=== PATIENT | male | born 1960 | race Hispanic/Latino ===

== ENCOUNTER 2025-04-22 15:46 | Emergency (ER) | payer SELFPAY ==
[~2025-04-22] VITALS: Ht 172.7 cm; Wt 77.1 kg
[2025-04-22 16:33] LABS: IMMATURE GRANULOCYTE ABSOLUTE 0.00 K/uL (0-1); NUCLEATED RED BLOOD CELLS 0.0 % (0.0-0.19); PLATELET COUNT (AUTO) 273 K/uL (130-400); RED BLOOD CELL COUNT(AUTO) 3.72 MIL/uL (4.50-6.20); RED CELL DISTRIBUTION WIDTH 14.6 % (11.0-15.5); WHITE BLOOD COUNT (AUTO) 7.1 K/uL (4.8-10.8)
[2025-04-22 16:41] LABS: CREATININE 1.7 mg/dL (0.5-1.3); GLOMERULAR FILTR. RATE CALC 44.0 mL/min (>90); GLUCOSE,RANDOM 162.0 mg/dL (70-105); SODIUM SERUM 139.0 mmol/L (136-145); UREA NITROGEN, BLOOD 28.0 mg/dL (7-18)
[2025-04-22 16:51] LABS: CREATINE KINASE, TOTAL 26.0 U/L (21-232)
[2025-04-22] MEDS: 0.9%NACL 1000ML 1,000 ML IV STA (17:04)
--- NOTE | 2025-04-22 17:28 | EKG ---
[facility] Test Date: 2025-04-22 Test Time: 17:24:07 Pat Name: SAUL SALAS Department: ED Room: Gender: M Senior Medical Director: [id number] : 1960 Requested By: MAC MCKEON Order Number: [id number] Reading MD: Hemant Negron Measurements Intervals [place] Rate: 67 P: 44 MO: 150 QRS: -10 QRSD: 94 T: 1 QT: 430 QTc: 454 Interpretive Statements Sinus rhythm No previous ECG available for comparison Electronically Signed On 04-22-2025 18:39:44 CDT by Hemant Negron Please click the below link to view image of tracing.
--- NOTE | 2025-04-22 17:45 | ERN ---
ED Note History of Present Illness Stated Complaint: EVALUATION OF SUGAR AND BP Chief Complaint: Multiple Complaints Time Seen by MD: 15:54 Time Seen by Midlevel: 15:58 Dictation: 65-year-old male with a history of hypertension diabetes coming in via EMS for evaluation of elevated blood sugar and blood pressure. Patient states he is not complaining with a home medications, it is homeless and has been outside for the last couple of days. Patient at this time has not no specific complaints other than generalized body weakness. Allergies: Coded Allergies: Penicillins (Unverified Allergy, Unknown, 04/22/25) Past Medical History Past Medical History: Diabetes-Type II, Hypertension, [place] Surgical History: Other Review of System Dictation Constitutional: Negative for fever,chills, and weight loss Eyes: Negative for injury, pain,redness, and discharge ENT: Negative for injury,pain or swelling Cardiovascular: Negative for chest pain, palpitations, and edema Respiratory: Negative for shortness of breath, cough, and wheezing, Abdomen/GI: Negative for abdominal pain, nausea, vomiting, diarrhea, and constipation Back: Negative for injury and pain : Negative for injury, bleeding and discharge MS/Extremity: Negative for injury and deformity Skin: Negative for rash, and discoloration Neuro: Negative for headache, weakness, numbness, tingling, and seizure Psych: Negative for suicide ideation, homicidal ideation, and hallucinations Review of Systems: was completed Initial Vital Sign VS Vital Signs Date Time Temp Pulse Resp B/P (MAP) Pulse Ox O2 Delivery O2 Flow Rate FiO2 04/22/25 15:50 98.8 82 20 151/83 97 04/22/25 17:25 Room Air* 0 21 Physical Exam Dictation General: awake, alert, NAD Head/Face: Normocephalic, atraumatic Eyes: PERRL, EOMI, vision at baseline ENT: oral cavity clear, TMs clear, no signs of infection Neck: Trachea midline, supple, no nuchal rigidity Cardiovascular: RRR, normal S1/S2, No MRGs, no JVD Respiratory: CTAB, no respiratory distress, No rales or wheezes Abdomen: Soft, non-tender, non-distended, normal bowel sounds, no guarding or rebound. Skin: Warm, dry, normal turgor, no rash MS/Extremity: Pulses equal, no cyanosis, neurovascular intact, FROM Neuro: COAx4, GCS 15, strength 5/5, CN 2-12 intact, normal cerebellar exam, normal gait, Psych: Normal behavior, mood, and affect normal Results (Laboratory/Radiology) Laboratory/Radiology Laboratory Tests Test 04/22/25 16:28 White Blood Count 7.1 K/uL (4.8-10.8) Red Blood Count 3.72 MIL/uL (4.50-6.20) L Hemoglobin 10.7 g/dL (14.0-18.0) L Hematocrit 31.5 % (42-54) L Mean Corpuscular Volume 84.7 fL (79-99) Mean Corpuscular Hemoglobin 28.8 pg (27.0-33.0) Mean Corpuscular Hemoglobin Concent 34.0 g/dL (32.0-36.0) Red Cell Distribution Width 14.6 % (11.0-15.5) Platelet Count 273 K/uL (130-400) Mean Platelet Volume 10.6 fL (7.5-10.5) H Immature Granulocyte % (Auto) 0.0 % (0-1) Neutrophils (%) (Auto) 69.1 % (40.0-77.0) Lymphocytes (%) (Auto) 20.3 % (21.0-51.0) L Monocytes (%) (Auto) 6.5 % (3.0-13.0) Eosinophils (%) (Auto) 3.5 % (0.0-8.0) Basophils (%) (Auto) 0.6 % (0.0-5.0) Neutrophils # (Auto) 4.9 K/uL (1.8-7.7) Lymphocytes # (Auto) 1.4 K/uL (1.0-4.8) Monocytes # (Auto) 0.5 K/uL (0.1-1.0) Eosinophils # (Auto) 0.25 K/uL (0.00-0.70) Basophils # (Auto) 0.04 K/uL (0.00-0.20) Absolute Immature Granulocyte (auto 0.00 K/uL (0-1) Nucleated Red Blood Cells 0.0 % (0.0-0.19) Sodium Level 139 mmol/L (136-145) Potassium Level 3.9 mmol/L (3.5-5.1) Chloride Level 105 mmol/L (101-111) Carbon Dioxide Level 25 mmol/L (21-32) Blood Urea Nitrogen 28 mg/dL (7-18) H Creatinine 1.7 mg/dL (0.5-1.3) H Glomerular Filtration Rate Calc 44 mL/min (>90) Random Glucose 162 mg/dL (70-105) H Total Calcium 8.3 mg/dL (8.5-10.1) L Total Creatine Kinase 26 U/L (21-232) Labs Reviewed?: Yes EKG Comment: EKGs done at 5:24 p.m.. Sinus rhythm at a rate of 67. No STEMI interpreted by ER MD ED Course ED Course Orders Procedure Category Date Status Time Cbc With Differential LAB 04/22/25 Complete 15:55 Basic Metabolic Panel LAB 04/22/25 Complete 15:55 Creatine Kinase, Total LAB 04/22/25 Complete 15:55 Urinalysis Profile LAB 04/22/25 Logged 15:55 12 Lead Ekg Tracing- EKG 04/22/25 Complete Technical 15:55 0.9%Nacl 1000ml (Ns PHA 04/22/25 Complete 1000ml) 15:55 Current Medications Medications (Trade) Dose Ordered Sig/Shay Route PRN Reason Start Time Stop Time Status Last Admin Dose Admin Sodium Chloride 1,000 ml @ 1,000 mls/hr Q1H STAT IV 04/22/25 15:55 04/22/25 16:54 DC 04/22/25 17:04 Vital Signs Date Time Temp Pulse Resp B/P (MAP) Pulse Ox O2 Delivery O2 Flow Rate FiO2 04/22/25 17:25 98.8 82 20 151/83 97 Room Air* 0 21 04/22/25 15:50 98.8 82 20 151/83 97 Medical Decision Making MDM MDM: 65-year-old male with a history of hypertension diabetes coming in via EMS for evaluation of elevated blood sugar and blood pressure. Patient states he is not complaining with a home medications, it is homeless and has been outside for the last couple of days. Patient at this time has not no specific complaints other than generalized body weakness. CBC Shows no leukocytosis, normocytic anemia hemoglobin of 10 and hematocrit 31. No thrombocytopenia. Chemistry shows no electrolyte abnormality. Elevated BUN creatinine creatinine is 1.7. This could be related to dehydration. 1 L initiated in the emergency room. Blood sugar 162. After 1 L of fluids patient states he feels much better and we will want to go home. Discussed with the patient the need to follow up with his PCP and take his home medication. Patient verbalized understanding, answered all questions. Differential diagnosis: Rhabdomyolysis, hyperglycemia, dehydration, electrolyte abnormality, RANDI Rationale: Tests considered and ordered secondary to shared decision making include: Previous outside records reviewed: Old ER visits. Risk of complication and/or morbidity or mortality of patient management: None Medications-Per medication reconciliation Need for hospitalization: Patient does not meet criteria for hospitalization. Need for emergency major/minor surgery: No There are no social concerns with this patient. Prescription drug management Prescriptions will include symptomatic care Patient's prior external medical records from other ER visits were reviewed by me as indicated. Prior testing and results from previous visits were reviewed. Prior tests were taken into account with medical decision making and resource utilization, independent historian/historians were used to obtain complete medical history. I independently interpreted the test that were performed, results were reviewed by me and considered findings on radiology if ordered. Medical management and examination interpretation discussions were had by me with other qualified healthcare professionals as indicated for the patient's care. DX & DISP Disposition: Discharge Departure Impression: Primary Impression: Dehydration Condition: Stable Additional Instructions: Instructions patient on red flag symptoms of return back to the emergency room. Educated patient to stay hydrated to avoid any kidney problems. Patient verbalized understanding, answered all questions. Referrals: SELF,REFERRAL (PCP) Time of Disposition: 18:12 I have reviewed the case, and I agree with, Diagnosis and Plan MAC MCKEON NP Apr 22, 2025 17:45
[2025-04-22 18:14] VITALS: BP 138/74; PULSE 77; RESP 20; TEMP 98.8; O2SAT 97
[2025-04-22 18:14] LABS: APPEARANCE,URINE CLEAR (CLEAR); GLUCOSE, URINE (UA) 70 mg/dL (NEGATIVE); LEUKOCYTE ESTERASE ,URINE NEGATIVE Leu/uL (NEGATIVE); NITRATE,URINE NEGATIVE (NEGATIVE); OCCULT BLOOD,URINE +- (TRACE) (NEGATIVE)
[2025-04-22 18:15] LABS: ADD UA MICROSCOPIC YES
[2025-04-22 18:41] LABS: OTHER CASTS, URINE 3 /LPF (None Seen); SQUAMOUS EPITHELIAL CELL,UR RARE /HPF (0-2)
== END 2025-04-22 18:15 | disposition home or self-care (01) ==
LOC: EDH 15:46
DX: E86.0 Dehydration (principal); E11.9 Type 2 diabetes mellitus without complications; I10 Essential (primary) hypertension; Z88.0 Allergy status to penicillin
CPT/HCPCS: 99284; 82550; 80048; 85025; 81001; 36415; 93005; J7030

== ENCOUNTER 2025-06-04 17:35 | Emergency (ER) | payer OTHER ==
[~2025-06-04] VITALS: Ht 172.7 cm; Wt 77.1 kg
[2025-06-04 17:49] VITALS: BP 120/76; PULSE 0; RESP 16; TEMP 98; O2SAT 98
--- NOTE | 2025-06-04 17:53 | ERN ---
General Chief Complaint: Headache Stated Complaint: HEADACHE Time Seen by MD: 17:50 History of Present Illness Initial Comments 65-year-old male brought in by EMS for hypertension. Patient is homeless. He was just discharged from [facility]. He states that he is hungry. He says that he is worried about his blood pressure. His blood pressure is 120/80. He has no other symptoms. Allergies: Coded Allergies: Penicillins (Unverified Allergy, Unknown, 04/22/25) Past Medical History Past Medical History: Diabetes-Type II, Hypertension, [place] Past Surgical History: Other ROS Dictation CONSTITUTIONAL: No chills, no fever, no weakness, no diaphoresis, no malaise. HEAD/FACE: No signs of trauma. EENT: No eye pain, no blurred vision, no tearing, no double vision, no ear pain, no ear discharge, no nose pain, no nasal congestion, no throat pain, no throat swelling, no mouth pain. RESPIRATORY: No cough, no orthopnea, no SOB, no stridor, no wheezing. CARDIOVASCULAR: No chest pain, no edema, no palpitations, no syncope. GASTROINTESTINAL/ABDOMINAL: No abdominal pain, no constipation, no diarrhea, no nausea, no vomiting. GENITOURINARY: No abnormal discharge, no dysuria, no frequent urination, no hematuria. No complaints of pain in the genitals. MUSCULOSKELETAL: No back pain, no gout, no joint pain, no joint swelling, no muscle pain, no muscle stiffness, no neck pain. INTEGUMENTARY: No change in color, no change in hair/nails, no dryness, no lesion, no lumps, no rash. NEUROLOGICAL/PSYCH: No anxiety, not depressed, no emotional problem, no head ache, no numbness, no pre-existing deficit, no history of seizures, no tremors, no weakness. HEMATOLOGIC/LYMPHATIC: Not anemic, no history of blood clots, no apparent bleeding, no bruising, glands not swollen. All Systems Negative, Except as Noted. Physical Exam Physical Exam Dictation VITAL SIGNS: Reviewed. GENERAL APPEARANCE: Alert, oriented x3, no acute distress. HEAD AND FACE: Non-traumatic. EYES: PERRL, pink conjunctivas, eyelid no trauma, anterior chamber clear. EARS: Pinnas intact and no signs of trauma or erythema. Ear canals clear and no discharge. TMs no erythema. NOSE: No discharge, no bleeding. OROPHARYNX: Mouth normal, teeth no caries, tongue pink. Pharynx clear, no erythema. Tonsils no exudates, no abscesses noted. Mucous membrane moist. NECK: Supple, non-tender, no thyromegaly, no masses, no JVD, no bruits. BREAST: Deferred. CHEST: No tenderness, no crepitus, no paradoxical movement, no retractions. LUNGS: Clear, well-ventilated, symmetric, no rales, no wheezing, no rhonchi, no stridor, good breath sounds bilaterally. HEART: Regular rate, regular rhythm, no murmur, no gallops. VASCULAR: No peripheral edema. ABDOMEN: Soft, positive bowel sounds, nondistended, no guarding, nontender, no r ebound, no masses no hepatomegaly, no splenomegaly, no Jalloh's sign, no hernias. RECTAL: Deferred. GENITAL: Deferred. NEUROLOGICAL: Normal speech, gross motor function intact, gross sensory function intact. MUSCULOSKELETAL: Neck nontender, full range of motion, back nontender, full range of motion. EXTREMITIES: Nontender, full range of motion. SKIN: Color pink, dry, no turgor, no rash, no lacerations, no abrasions, no contusions. LYMPHATICS: Deferred. MDM CC: Concern for hypertension, no complaints, hunger Limitations by social determinants of health: Homeless Differential diagnosis: Secondary gain, hypertension Vital signs are stable. Blood pressure 120/80. Heart rate stable. Clinically nontoxic. Ambulatory. GCS 15. Normal cranial nerves. I suspect the patient is here for secondary gain. He is mostly acting for food. Patient given a sandwich. We will DC. ED Course Vital Signs Date Time Temp Pulse Resp B/P (MAP) Pulse Ox O2 Delivery O2 Flow Rate FiO2 06/04/25 17:36 98.1 92 20 120/76 99 Room Air DX & DISP Disposition: Discharge Departure Impression: Primary Impression: Dehydration Additional Impression: Hunger Condition: Stable Referrals: SELF,REFERRAL (PCP) PERFECTO INGRAM DO Jun 04, 2025 17:52
--- NOTE | 2025-06-04 18:08 | NUR ---
PT LIVES ON THE STRE[address] PROVIDED INFORMATION ON LOCAL SHETERS AND HE ADVISED WILL MAKE CONTACT TAKEN TO LOBBY AFTER FED AND REYDRATED HE ADVISED WILL FINISH SANDWICH IN THE LOBBY AND MAKE HIS OWN WAY
== END 2025-06-04 18:10 | disposition home or self-care (01) ==
LOC: EDH 17:35
DX: E86.0 Dehydration (principal); T73.0XXA Starvation, initial encounter; E11.9 Type 2 diabetes mellitus without complications; I10 Essential (primary) hypertension; I25.2 Old myocardial infarction; Z88.0 Allergy status to penicillin; X58.XXXA Exposure to other specified factors, initial encounter
CPT/HCPCS: 99283

== ENCOUNTER 2025-06-06 09:32 | Emergency (ER) | payer OTHER ==
[~2025-06-06] VITALS: Ht 172.7 cm; Wt 77.1 kg
[2025-06-06] MEDS: 0.9% NACL 500ML IV.SOLN 500 ML IV ONE (10:07)
[2025-06-06 10:17] LABS: IMMATURE GRANULOCYTE ABSOLUTE 0.02 K/uL (0-1); NUCLEATED RED BLOOD CELLS 0.0 % (0.0-0.19); PLATELET COUNT (AUTO) 279 K/uL (130-400); RED BLOOD CELL COUNT(AUTO) 3.62 MIL/uL (4.50-6.20); RED CELL DISTRIBUTION WIDTH 13.4 % (11.0-15.5); WHITE BLOOD COUNT (AUTO) 7.1 K/uL (4.8-10.8)
[2025-06-06 10:29] LABS: ASPARTATE AMINOTRANSFERASE 11.0 U/L (10-37); CREATININE 2.5 mg/dL (0.5-1.3); GLOMERULAR FILTR. RATE CALC 28.0 mL/min (>90); GLUCOSE,RANDOM 210.0 mg/dL (70-105); SODIUM SERUM 136.0 mmol/L (136-145); TOTAL PROTEIN, SERUM 7.4 g/dL (6.0-8.3); UREA NITROGEN, BLOOD 47.0 mg/dL (7-18)
--- NOTE | 2025-06-06 10:35 | HMCIMG ---
EXAM: CR Chest, 1 View. CLINICAL HISTORY: Acute onset epigastric pain with chest pain COMPARISON: None provided. FINDINGS: LUNGS: There is no mass, infiltrate, or acute pulmonary abnormality. PLEURAL SPACES: No pleural effusion or pneumothorax. MEDIASTINUM: The cardiomediastinal silhouette is within normal limits. BONES: No acute osseous abnormality. IMPRESSION: No acute cardiopulmonary pathology is evident. /[place]
--- NOTE | 2025-06-06 10:42 | EKG ---
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
--- NOTE | 2025-06-06 10:48 | ERN ---
General Chief Complaint: Chest Pain Stated Complaint: CP Time Seen by MD: 09:35 Source: patient History of Present Illness Initial Comments This patient is a 65-year-old gentleman who was brought by EMS to the ED department with complaint of epigastric pain. Patient states that he also has mild chest pain. He had 1 episode of vomiting in the morning and he is continuously nauseous. No change in bowel habits reported. No shortness on breath on presentation. Timing/Duration: 24 hours Severity: moderate Associated Symptoms: nausea/vomiting Allergies: Coded Allergies: Penicillins (Unverified Allergy, Unknown, 04/22/25) Home Meds Active Scripts Simethicone (Simethicone) 125 Mg Capsule, 125 MG PO AD, #15 CAP Prov:DUGLAS RODRIGEZ MD 06/06/25 Famotidine (Famotidine) 10 Mg Tablet, 1 TAB PO DAILY for 30 Days, #30 TAB 0 Refills Prov:DUGLAS RODRIGEZ MD 06/06/25 Past Medical History Past Medical History: Diabetes-Type II, Diverticulitis, High Cholesterol, Hypertension Past Surgical History: Other Surgical History Other: TOE AMPUTATION Constitutional: (+) weakness Cardiovascular: (+) chest pain Gastrointestinal/Abdominal: (+) nausea, (+) vomiting, (+) abdominal pain, (+) abdominal distention Genitourinary: (-) penile discharge, (-) dysuria, (-) frequency, (-) hematuria, (-) pain, (-) other documentation Musculoskeletal: (-) Neck pain, (-) back pain, (-) Flank Pain, (-) joint pain, (-) joint swelling, (-) muscle pain, (-) muscle stiffness, (-) gout, (-) other documentation Skin: (-) laceration, (-) contusion, (-) abrasion, (-) abscess, (-) rash, (-) change in color, (-) change in hair, (-) change in nails, (-) diaphoresis, (-) dryness, (-) other documentation Neuro: (-) altered mental status, (-) headache, (-) syncope, (-) paralysis, (-) numbness, (-) seizure, (-) pre-existing deficit, (-) tremors, (-) weakness, (-) dizziness, (-) slurred speech, (-) vertigo, (-) other documentation Psych: (-) depression, (-) suicidal ideation, (-) anxiety, (-) emotional problems, (-) auditory hallucinations, (-) visual hallucinations Hematologic/Lymphatic: (-) anemia, (-) blood clots, (-) easy bleeding, (-) easy bruising, (-) swollen glands, (-) other documentation Immunological/Allergic: (-) food allergy, (-) grass allergy, (-) mold allergy, (-) pollen allergy, (-) HIV/AIDS, (-) transplant, (-) othe documentation Physical Exam General Appearance: (+) moderate distress Orientation: (+) alert, (+) oriented x 3 Ear, Nose, Throat: (+) hearing grossly normal, (+) normal ENT inspection, (+) moist mucous membraine Neck: (+) normal inspection, (+) supple, (+) full range of motion Respiratory: (+) chest non-tender, (+) lungs clear Heart: (+) regular Vascular: (+) no edema Gastrointestinal: (+) distended, (+) tender Extremities: (+) normal range of motion, (+) non-tender, (+) normal inspection Neurologic/Psychiatric: (+) normal speech, (+) no motor defecits, (+) no sensory deficits Skin: (+) normal color Results Laboratory and Microbiology Lab and Micro Result Laboratory Tests Test 06/06/25 10:00 06/06/25 10:44 06/06/25 11:54 White Blood Count 7.1 K/uL (4.8-10.8) Red Blood Count 3.62 MIL/uL (4.50-6.20) L Hemoglobin 10.4 g/dL (14.0-18.0) L Hematocrit 30.9 % (42-54) L Mean Corpuscular Volume 85.4 fL (79-99) Mean Corpuscular Hemoglobin 28.7 pg (27.0-33.0) Mean Corpuscular Hemoglobin Concent 33.7 g/dL (32.0-36.0) Red Cell Distribution Width 13.4 % (11.0-15.5) Platelet Count 279 K/uL (130-400) Mean Platelet Volume 11.0 fL (7.5-10.5) H Immature Granulocyte % (Auto) 0.3 % (0-1) Neutrophils (%) (Auto) 80.5 % (40.0-77.0) H Lymphocytes (%) (Auto) 13.1 % (21.0-51.0) L Monocytes (%) (Auto) 5.1 % (3.0-13.0) Eosinophils (%) (Auto) 0.6 % (0.0-8.0) Basophils (%) (Auto) 0.4 % (0.0-5.0) Neutrophils # (Auto) 5.7 K/uL (1.8-7.7) Lymphocytes # (Auto) 0.9 K/uL (1.0-4.8) L Monocytes # (Auto) 0.4 K/uL (0.1-1.0) Eosinophils # (Auto) 0.04 K/uL (0.00-0.70) Basophils # (Auto) 0.03 K/uL (0.00-0.20) Absolute Immature Granulocyte (auto 0.02 K/uL (0-1) Nucleated Red Blood Cells 0.0 % (0.0-0.19) Sodium Level 136 mmol/L (136-145) Potassium Level 4.0 mmol/L (3.5-5.1) Chloride Level 101 mmol/L (101-111) Carbon Dioxide Level 32 mmol/L (21-32) Blood Urea Nitrogen 47 mg/dL (7-18) H Creatinine 2.5 mg/dL (0.5-1.3) H Glomerular Filtration Rate Calc 28 mL/min (>90) Random Glucose 210 mg/dL (70-105) H Total Calcium 8.5 mg/dL (8.5-10.1) Total Bilirubin 0.4 mg/dL (0.2-1.0) Direct Bilirubin 0.1 mg/dL (0.0-0.3) Aspartate Amino Transf (AST/SGOT) 11 U/L (10-37) Alanine Aminotransferase (ALT/SGPT) 15 U/L (12-78) Alkaline Phosphatase 108 U/L (50-136) Troponin I High Sensitivity 7 ng/L (4-75) 8 ng/L (4-75) Total Protein 7.4 g/dL (6.0-8.3) Albumin 3.5 g/dL (3.5-5.0) Lipase 56 U/L (16-77) Procalcitonin < 0.05 ng/mL (0.05-0.5) L Lactic Acid Level 1.5 mmol/L (0.8-2.5) EKG/XRAY/US/CT/MRI X-RAY Comment PATIENT: SAUL SALAS MR#: [id number] : 1960 SEX: M AGE: 65 LOCATION: [facility] ORDER [id number] STATUS: REG ER [facility] REPORT#: [id number] SERVICE [id number] REASON: Acute onset epigastric pain with chest pain ORDERING PHYSICIAN: DGULAS RODRIGEZ MD PROCEDURE: CXR1VW - CHEST 1VW EXAM: CR Chest, 1 View. CLINICAL HISTORY: Acute onset epigastric pain with chest pain COMPARISON: None provided. FINDINGS: LUNGS: There is no mass, infiltrate, or acute pulmonary abnormality. PLEURAL SPACES: No pleural effusion or pneumothorax. MEDIASTINUM: The cardiomediastinal silhouette is within normal limits. BONES: No acute osseous abnormality. IMPRESSION: No acute cardiopulmonary pathology is evident. /[place] DICTATED BY: ERNESTINA THIBODEAUX Jr., MD DATE: 06/06/251133 ELECTRONICALLY SIGNED BY: ERNESTINA THIBODEAUX Jr., MD DATE: 06/06/[address] Scan Comment PATIENT: SAUL SALAS MR#: [id number] : 1960 SEX: M AGE: 65 LOCATION: [facility] ORDER [id number] STATUS: REG ER REPORT#: [id number] SERVICE 1111 REASON: Epigastric pain radiating to back ORDERING PHYSICIAN: DUGLAS RODRIGEZ MD PROCEDURE: ABD PEL WO - CT ABDOMEN/PELVIS W/O CONTRAST CT ABDOMEN/PELVIS W/O CONTRAST REASON: Epigastric pain radiating to back COMPARISON: None. FINDINGS: Lung bases are clear. The heart and pericardium appears to be normal. There is small to moderate hiatal hernia. There are no focal liver lesions. There are normal-appearing kidneys.. Spleen and pancreas appear unremarkable. The gallbladder appears normal as well. Bowel loops appear unremarkable. . The small and large bowels appears to be air-filled. This includes normal appearance of the appendix There is no evidence of free fluid or intraperitoneal air. There are no focal fluid collections. Aorta and iliac and femoral vessels demonstrate calcified plaque with no evidence of aneurysmal dilatation. The retroperitoneum appear normal as do pelvic soft tissue structures. The anterior abdominal wall is intact. Osseous structures demonstrate severe disease at L5-S1. There is ventral marginal spur at L4-L5 and lower thoracic spine. IMPRESSION: 1. No acute process seen in the CT of the abdomen and pelvis without intravenous contrast 2. Other findings as described above CT was performed with one or more following dose reduction techniques: automated exposure control, adjustment of the mA and kv according to patient's size, or use of a iterative reconstruction technique. DICTATED BY: PADDY DEXTER MD DATE: 06/06/25 1135 ELECTRONICALLY SIGNED BY: PADDY DEXTER MD DATE: 06/06/25 1140 [facility] Differential diagnosis: Acute pancreatitis, ACS, musculoskeletal pain, IBS This patient is a 65-year-old gentleman who was brought by EMS to the ED departm ent with complaint of epigastric pain. Patient states that he also has mild chest pain. He had 1 episode of vomiting in the morning and he is continuously nauseous. No change in bowel habits reported. No shortness on breath on presentation. On presentation, chest x-ray and CT abdomen pelvis without contrast were done which were unremarkable for any acute pathology. CBC showed mild anemia. CMP showed low GFR of 28. Lipase was unremarkable. Cardiac workup was negative with negative troponins and unremarkable EKG. Procalcitonin was within normal range. Patient was given ondansetron, Protonix, bolus of sodium chloride 500 mL and morphine. ED Course Orders Procedure Category Date Status Time 12 Lead Ekg Tracing- EKG 06/06/25 Complete Technical 09:42 Chest 1vw RAD 06/06/25 Resulted 09:45 Troponin I High LAB 06/06/25 Complete Sensitivity 09:45 Basic Metabolic Panel LAB 06/06/25 Complete 09:45 Hepatic Function Panel LAB 06/06/25 Complete 09:45 Lipase LAB 06/06/25 Complete 09:45 Ondansetron 4mg Inj PHA 06/06/25 Complete (Zofran 4mg Inj) 10:00 Morphine 2mg Syg PHA 06/06/25 In Process (Morphine 2mg Syg) 10:00 Cbc With Differential LAB 06/06/25 Complete 09:45 0.9% Nacl 500ml PHA 06/06/25 Complete Iv.Soln (Ns 500ml 10:00 Procalcitonin LAB 06/06/25 Complete 09:45 Pantoprazole 40mg Inj PHA 06/06/25 Complete (Protonix 40mg Inj 10:30 Troponin I High LAB 06/06/25 Complete Sensitivity 11:00 Ct Abdomen/Pelvis W/O CT 06/06/25 Resulted Contrast 11:11 Lactic Acid LAB 06/06/25 Complete 11:36 Current Medications Medications (Trade) Dose Ordered Sig/Shay Route PRN Reason Start Time Stop Time Status Last Admin Dose Admin Morphine Sulfate (morPHINE 2MG SYG) 2 mg Q4H PRN IVP SEVERE PAIN (7-10) 06/06/25 10:00 06/13/25 09:59 Ondansetron HCl (zoFRAN 4MG INJ) 4 mg ONCE ONCE IVP 06/06/25 10:00 06/06/25 10:01 DC 06/06/25 10:08 Pantoprazole Sodium (PROTonix 40MG INJ) 40 mg ONCE ONCE IVP 06/06/25 10:30 06/06/25 10:31 DC 06/06/25 10:28 Sodium Chloride 500 ml @ 0 mls/hr ONCE ONCE IV 06/06/25 10:00 06/06/25 10:01 DC 06/06/25 10:07 Vital Signs Date Time Temp Pulse Resp B/P (MAP) Pulse Ox O2 Delivery O2 Flow Rate FiO2 06/06/25 12:20 98.2 70 16 151/89 99 Room Air* 0 21 06/06/25 10:02 98.2 77 18 158/97 99 Room Air* 0 21 06/06/25 09:33 98.2 77 15 183/89 99 Room Air 0 DX & DISP Disposition: Discharge Departure Impression: Primary Impression: Irritable bowel syndrome Additional Impressions: CKD (chronic kidney disease), Dehydration Condition: Stable Scripts Simethicone (Simethicone) 125 Mg Capsule 125 MG PO AD, #15 CAP Prov: DUGLAS RODRIGEZ MD 06/06/25 Famotidine (Famotidine) 10 Mg Tablet 1 TAB PO DAILY for 30 Days, #30 TAB 0 Refills Prov: DUGLAS RODRIGEZ MD 06/06/25 Referrals: SELF,REFERRAL (PCP) ATTESTATION BY PHYSICIAN I have seen and examined the patient. I reviewed the documentation, medical decision making, and treatment plan as noted by the resident provider above. I agree with the findings and plan of care. PERFECTO INGRAM MUHAMMAD H MD Jun 06, 2025 10:48 PERFECTO INGRAM DO Jun 06, 2025 12:44
--- NOTE | 2025-06-06 11:20 | NUR ---
PT IS IN CT AT THIS TIME
--- NOTE | 2025-06-06 11:40 | HMCIMG ---
CT ABDOMEN/PELVIS W/O CONTRAST REASON: Epigastric pain radiating to back COMPARISON: None. FINDINGS: Lung bases are clear. The heart and pericardium appears to be normal. There is small to moderate hiatal hernia. There are no focal liver lesions. There are normal-appearing kidneys.. Spleen and pancreas appear unremarkable. The gallbladder appears normal as well. Bowel loops appear unremarkable. . The small and large bowels appears to be air-filled. This includes normal appearance of the appendix There is no evidence of free fluid or intraperitoneal air. There are no focal fluid collections. Aorta and iliac and femoral vessels demonstrate calcified plaque with no evidence of aneurysmal dilatation. The retroperitoneum appear normal as do pelvic soft tissue structures. The anterior abdominal wall is intact. Osseous structures demonstrate severe disease at L5-S1. There is ventral marginal spur at L4-L5 and lower thoracic spine. IMPRESSION: 1. No acute process seen in the CT of the abdomen and pelvis without intravenous contrast 2. Other findings as described above CT was performed with one or more following dose reduction techniques: automated exposure control, adjustment of the mA and kv according to patient's size, or use of a iterative reconstruction technique.
[2025-06-06] MEDS ORDERED: FAMO-290 PO (12:17)
[2025-06-06] MEDS ORDERED: SIME125C81 PO (12:17)
[2025-06-06 12:20] VITALS: BP 151/89; PULSE 70; RESP 16; TEMP 98.2; O2SAT 99
== END 2025-06-06 12:35 | disposition home or self-care (01) ==
LOC: EDH 09:32
DX: K58.9 Irritable bowel syndrome, unspecified (principal); I12.9 Hypertensive chronic kidney disease with stage 1 through stage 4 chronic kidney disease, or unspecified chronic kidney disease; E11.22 Type 2 diabetes mellitus with diabetic chronic kidney disease; N18.9 Chronic kidney disease, unspecified; E86.0 Dehydration; E78.00 Pure hypercholesterolemia, unspecified; Z79.899 Other long term (current) drug therapy; Z88.0 Allergy status to penicillin; Z98.890 Other specified postprocedural states
CPT/HCPCS: 99285; 74176; 96374; 71045; 96361; 96375; 80076; 84484 ×2; 80048; 83690; 85025; 83605; 36415; 93005; 84145; J7040; J2405; J2470

== ENCOUNTER 2025-06-08 01:23 | Observation (INO) | payer OTHER ==
[2025-06-08] VITALS (8 sets, daily range): BP systolic 119–161; BP diastolic 68–78; PULSE 61–78; RESP 18–20; TEMP 97.5–98; O2SAT 95–99
[~2025-06-08] VITALS: Ht 172.7 cm; Wt 72.6 kg
[~2025-06-08 01:23] MED LIST: FAMO-290 PO; SIME125C81 PO
--- NOTE | 2025-06-08 01:34 | ERN ---
ED Note History of Present Illness Stated Complaint: Patient states he has some generalized body weakness. But no falls trips traumas no no cough congestion runny nose Chief Complaint: Weakness Time Seen by MD: 01:31 Allergies: Coded Allergies: Penicillins (Unverified Allergy, Unknown, 04/22/25) Home Meds Active Scripts Simethicone (Simethicone) 125 Mg Capsule, 125 MG PO AD, #15 CAP Prov:DUGLAS RODRIGEZ MD 06/06/25 Famotidine (Famotidine) 10 Mg Tablet, 1 TAB PO DAILY for 30 Days, #30 TAB 0 Refills Prov:DUGLAS RODRIGEZ MD 06/06/25 Past Medical History Past Medical History: Diabetes-Type II, Diverticulitis, High Cholesterol, Hypertension, MD Surgical History: Other Surgical History Other: TOE AMPUTATION Review of System Dictation Constitutional: Negative for fever,chills, and weight loss Eyes: Negative for injury, pain,redness, and discharge ENT: Negative for injury,pain or swelling Cardiovascular: Negative for chest pain, palpitations, and edema Respiratory: Negative for shortness of breath, cough, and wheezing, Abdomen/GI: Negative for abdominal pain, nausea, vomiting, diarrhea, and constipation Back: Negative for injury and pain : Negative for injury, bleeding and discharge MS/Extremity: Negative for injury and deformity Skin: Negative for rash, and discoloration Neuro: Negative for headache, weakness, numbness, tingling, and seizure Psych: Negative for suicide ideation, homicidal ideation, and hallucinations Initial Vital Sign VS Vital Signs Date Time Temp Pulse Resp B/P (MAP) Pulse Ox O2 Delivery O2 Flow Rate FiO2 06/08/25 01:26 97.5 74 16 152/75 Room Air 0 Physical Exam Dictation General: awake, alert, NAD Head/Face: Normocephalic, atraumatic Eyes: PERRL, EOMI, vision at baseline ENT: oral cavity clear, TMs clear, no signs of infection Neck: Trachea midline, supple, no nuchal rigidity Cardiovascular: RRR, normal S1/S2, No MRGs, no JVD Respiratory: CTAB, no respiratory distress, No rales or wheezes Abdomen: Soft, non-tender, non-distended, normal bowel sounds, no guarding or rebound. Skin: Warm, dry, normal turgor, no rash MS/Extremity: Pulses equal, no cyanosis, neurovascular intact, FROM Neuro: COAx4, GCS 15, strength 5/5, CN 2-12 intact, normal cerebellar exam, normal gait, Psych: Normal behavior, mood, and affect normal No focal deficits. NIH of 0 that has able to ambulate. Results (Laboratory/Radiology) Laboratory/Radiology Laboratory Tests Test 06/08/25 01:34 White Blood Count 6.8 K/uL (4.8-10.8) Red Blood Count 3.30 MIL/uL (4.50-6.20) L Hemoglobin 9.8 g/dL (14.0-18.0) L Hematocrit 27.8 % (42-54) L Mean Corpuscular Volume 84.2 fL (79-99) Mean Corpuscular Hemoglobin 29.7 pg (27.0-33.0) Mean Corpuscular Hemoglobin Concent 35.3 g/dL (32.0-36.0) Red Cell Distribution Width 13.3 % (11.0-15.5) Platelet Count 271 K/uL (130-400) Mean Platelet Volume 10.7 fL (7.5-10.5) H Immature Granulocyte % (Auto) 0.1 % (0-1) Neutrophils (%) (Auto) 54.4 % (40.0-77.0) Lymphocytes (%) (Auto) 35.0 % (21.0-51.0) Monocytes (%) (Auto) 5.8 % (3.0-13.0) Eosinophils (%) (Auto) 4.1 % (0.0-8.0) Basophils (%) (Auto) 0.6 % (0.0-5.0) Neutrophils # (Auto) 3.7 K/uL (1.8-7.7) Lymphocytes # (Auto) 2.4 K/uL (1.0-4.8) Monocytes # (Auto) 0.4 K/uL (0.1-1.0) Eosinophils # (Auto) 0.28 K/uL (0.00-0.70) Basophils # (Auto) 0.04 K/uL (0.00-0.20) Absolute Immature Granulocyte (auto 0.01 K/uL (0-1) Nucleated Red Blood Cells 0.0 % (0.0-0.19) Sodium Level 137 mmol/L (136-145) Potassium Level 3.3 mmol/L (3.5-5.1) L Chloride Level 102 mmol/L (101-111) Carbon Dioxide Level 26 mmol/L (21-32) Blood Urea Nitrogen 30 mg/dL (7-18) H Creatinine 2.0 mg/dL (0.5-1.3) H Glomerular Filtration Rate Calc 37 mL/min (>90) Random Glucose 173 mg/dL (70-105) H Total Calcium 8.3 mg/dL (8.5-10.1) L Troponin I High Sensitivity 8 ng/L (4-75) ED Course ED Course Orders Procedure Category Date Status Time Cbc With Differential LAB 06/08/25 Complete 01:32 Chest 1vw RAD 06/08/25 Logged 01:32 12 Lead Ekg Tracing- EKG 06/08/25 Complete Technical 01:32 Lactated Ringers PHA 06/08/25 Complete 1000ml (Lactated 02:00 Troponin I High LAB 06/08/25 Complete Sensitivity 01:32 Basic Metabolic Panel LAB 06/08/25 Complete 01:32 Current Medications Medications (Trade) Dose Ordered Sig/Shay Route PRN Reason Start Time Stop Time Status Last Admin Dose Admin Lactated Ringer's 1,000 ml @ 0 mls/hr ONCE ONCE IV 06/08/25 02:00 06/08/25 02:01 DC 06/08/25 01:56 Vital Signs Date Time Temp Pulse Resp B/P (MAP) Pulse Ox O2 Delivery O2 Flow Rate FiO2 06/08/25 01:26 97.5 74 16 152/75 Room Air 0 Medical Decision Making MDM MDM: Differential diagnosis: Rationale: Tests considered and ordered secondary to shared decision making include: labs, ECG and radiology Previous outside records reviewed: Old ER visits. Risk of complication and/or morbidity or mortality of patient management: None Medications-Per medication reconciliation Need for hospitalization: Patient does meet criteria for hospitalization. Need for emergency major/minor surgery: No There are no social concerns with this patient. Prescription drug management Prescriptions will include symptomatic care Patient's prior external medical records from other ER visits were reviewed by me as indicated. Prior testing and results from previous visits were reviewed. Prior tests were taken into account with medical decision making and resource utilization, independent historian/historians were used to obtain complete medical history. I independently interpreted the test that were performed, results were reviewed by me and considered findings on radiology if ordered. Medical management and examination interpretation discussions were had by me with other qualified healthcare professionals as indicated for the patient's care. DX & DISP Disposition: Inpatient Departure Impression: Primary Impression: Dehydration Condition: Stable Referrals: SELF,REFERRAL (PCP) RAYA OMALLEY MD Jun 08, 2025 01:34
--- NOTE | 2025-06-08 01:38 | EKG ---
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
[2025-06-08 01:43] LABS: IMMATURE GRANULOCYTE ABSOLUTE 0.01 K/uL (0-1); NUCLEATED RED BLOOD CELLS 0.0 % (0.0-0.19); PLATELET COUNT (AUTO) 271 K/uL (130-400); RED BLOOD CELL COUNT(AUTO) 3.30 MIL/uL (4.50-6.20); RED CELL DISTRIBUTION WIDTH 13.3 % (11.0-15.5); WHITE BLOOD COUNT (AUTO) 6.8 K/uL (4.8-10.8)
[2025-06-08 01:55] LABS: CREATININE 2.0 mg/dL (0.5-1.3); GLOMERULAR FILTR. RATE CALC 37.0 mL/min (>90); GLUCOSE,RANDOM 173.0 mg/dL (70-105); SODIUM SERUM 137.0 mmol/L (136-145); UREA NITROGEN, BLOOD 30.0 mg/dL (7-18)
[2025-06-08] MEDS: LACTATED RINGERS 1000ML 1,000 ML IV ONE (01:56)
--- NOTE | 2025-06-08 02:21 | HP ---
[facility]ORY [facility] PHYSICAL Date of Service: Jun 08, 2025 Time of Service: 02:21 PCP: Self Referral HISTORY OF PRESENT ILLNESS: This is a 65 year old male who is a homeless with past medical history of hypertension,hyperlipidemia,diabetes and coronary artery disease /GA with cardiac stent who was brought by EMS tot he Ed for complaints of bilateral lower extremity weakness which started today.Patient reports he has not drink water much because he is homeless and today he has difficulty walking and he feels weak.Patient also states he is not taking any meds because he is not able to afford it.Patient reports he recently had a heart attack and had a cardiac stent x 1 he said.Patient denies fall injury,loss of consciousness,nausea,vomiting,chest pain,palpitation and shortness of breath.Patient is able to move all extremities and follow commands. Latest vital signs temperature 97.5, heart rate 74, blood pressure 152/75. Labs: WBC 6, neutrophils 54 hemoglobin 9, hematocrit 27, platelet count 271. Potassium 3.3, BUN 30, creatinine 2, GFR 37, glucose 173 total calcium 8.3 troponin eight. Chest x-ray result is still pending at this time.Sinus rhythm HR70.While in the ER patient received 1 L LR bolus.Will admit patient for further medical management. REVIEW OF SYSTEMS CONSTITUTIONAL: Denies fevers, chills, or night sweats. No unintentional weight loss reported. NEUROLOGICAL: complained of bilateral lower extremity weakness Denies headache, amaurosis fugax, sensory deficit, vertigo/spinning sensation, gait abnormalities, or tremors. ENT: No hearing loss, otalgia, otorrhea, rhinitis, rhinorrhea, hoarseness, or sore throat. CARDIOVASCULAR: Denies any exertional angina, dyspnea on exertion, orthopnea, paroxysmal nocturnal dyspnea, palpitations, life-threatening arrhythmias, ciaran dication. PULMONARY: Denies any shortness of breath, cough, phlegm/sputum, hemoptysis, pleuritic chest pain. SLEEP: Denies morning headaches, daytime somnolence or napping. Denies difficulty falling asleep, staying asleep, waking from sleep. Denies knowledge of snoring. GASTROINTESTINAL: Denies any type of dysphagia to either liquids or solids. Denies nausea, vomiting, pyrosis, early satiety, abdominal pain, diarrhea, constipation, or changes in stool consistency or caliber. Denies coffee-ground emesis, hematemesis, hematochezia, or melanotic stools. GENITOURINARY: Denies frequency, urgency, nocturia, hematuria or incontinence (Storage/Irritative symptoms.) Low urinary stream, straining to void, urinary intermittency or hesitancy, splitting of the voiding stream, terminal dribbling. ENDOCRINOLOGIC: Denies polyuria, polydipsia, polyphagia or heat/cold intolerances. HEMATOLOGIC: Denies thrombophilia/previous clots, or coagulopathy/bleeding disorders. ONCOLOGIC: Denies personal history of malignancy. DERMATOLOGIC: Denies rashes or pruritus. PSYCHIATRIC: Denies any suicidal or homicidal ideation. Denies hallucinations. PAST MEDICAL HISTORY: [ Diabetes,hypertension,hyperlipidemia,GA and Diverticulitis ] PAST SURGICAL HISTORY: [ Toe amputation ,cardiac cath stent x1 ] PAST SOCIAL HISTORY: [ Patient is a homeless and states he smokes 10 cigarette/day and denies alcohol and recreational drug use.] FAMILY HISTORY: [ Noncontributory ] Coded Allergies: Penicillins (Unverified Allergy, Unknown, 04/22/25) PHYSICAL EXAM GENERAL APPEARANCE: The patient is awake, alert, and oriented, in no acute cardiopulmonary distress. NEUROLOGICAL: Cranial nerves II-XII grossly intact. Motor is 5/5 in bilateral upper and lower extremities proximal to distal. No sensory deficits. HEENT: Face is symmetric. Pupils are equal and reactive. Extraocular movements are intact. NECK: Supple. No JVD. No thyromegaly. No submental, submandibular, pre- /postauricular, occipital or supraclavicular lymphadenopathy. CHEST: Normal chest expansion. No Telemetry. LUNGS: Absence of any rales, rhonchi or any wheezing. CARDIOVASCULAR: Regular. S1 and S2 normal. No appreciable rubs, murmurs or gallops. ABDOMEN: Soft, nontender, and nondistended. There is no rebound, voluntary guarding, or rigidity. : Deferred. No Morgan. EXTREMITIES: Non-edematous and not cyanotic. No clubbing. Good capillary refill. SKIN: No skin breakdown. Vital Sign (Last 24 Hours) 06/08/25 01:26 Temp 97.5 Pulse 74 Resp 16 B/P (MAP) 152/75 O2 Delivery Room Air O2 Flow Rate 0 LABS: Laboratory: Test 06/08/25 01:34 Range/Units White Blood Count 6.8 4.8-10.8 K/uL Red Blood Count 3.30 L 4.50-6.20 MIL/uL Hemoglobin 9.8 L 14.0-18.0 g/dL Hematocrit 27.8 L 42-54 % Mean Corpuscular Volume 84.2 79-99 fL Mean Corpuscular Hemoglobin 29.7 27.0-33.0 pg Mean Corpuscular Hemoglobin Concent 35.3 32.0-36.0 g/dL Red Cell Distribution Width 13.3 11.0-15.5 % Platelet Count 271 130-400 K/uL Mean Platelet Volume 10.7 H 7.5-10.5 fL Immature Granulocyte % (Auto) 0.1 0-1 % Neutrophils (%) (Auto) 54.4 40.0-77.0 % Lymphocytes (%) (Auto) 35.0 21.0-51.0 % Monocytes (%) (Auto) 5.8 3.0-13.0 % Eosinophils (%) (Auto) 4.1 0.0-8.0 % Basophils (%) (Auto) 0.6 0.0-5.0 % Neutrophils # (Auto) 3.7 1.8-7.7 K/uL Lymphocytes # (Auto) 2.4 1.0-4.8 K/uL Monocytes # (Auto) 0.4 0.1-1.0 K/uL Eosinophils # (Auto) 0.28 0.00-0.70 K/uL Basophils # (Auto) 0.04 0.00-0.20 K/uL Absolute Immature Granulocyte (auto 0.01 0-1 K/uL Nucleated Red Blood Cells 0.0 0.0-0.19 % Sodium Level 137 136-145 mmol/L Potassium Level 3.3 L 3.5-5.1 mmol/L Chloride Level 102 101-111 mmol/L Carbon Dioxide Level 26 21-32 mmol/L Blood Urea Nitrogen 30 H 7-18 mg/dL Creatinine 2.0 H 0.5-1.3 mg/dL Glomerular Filtration Rate Calc 37 >90 mL/min Random Glucose 173 H 70-105 mg/dL Total Calcium 8.3 L 8.5-10.1 mg/dL Troponin I High Sensitivity 8 4-75 ng/L DIAGNOSTICS / RADIOLOGY: [ ] ASSESSMENT: Possible dehydration POA Acute normocytic normochromic anemia POA Debility POA Hypokalemia POA Acute kidney injury POA Uncontrolled diabetes POA Hypertension POA Hyperlipidemia POA Nicotine Dependence POA Homelessness POA PLAN: We will admit patient in medical surgical We will start on heart healthy diet We will start LR @ 100 ml / hr x2 bags and re evaluate We will start on Protonix 40 mg po daily for GI prophylaxis We will replace electrolytes as needed per protocol We will start on insulin sliding scale AC & HS with hypoglycemia protocol We will add prn medication for fever,pain,cough , nausea and vomiting We will reconcile home meds once medlist available We will request case management service We will request PT to eval and treat Counseled on cigarette smoking cessation We will request labs in am Further orders to follow depending on above results Case discussed with attending physician and came up with above treatment and plan of care. ADVANCED CARE PLANNING 1. Which of the following were discussed? Hospice Care - No Therapeutic options - Yes Advance Directives - No Other discussions - 2. Discussed with who? Patient 3. Voluntary nature of this service was explained to the patient? Yes 4. Amount of time spent - ___23 min____ 5. Reviewed by Physician? (if this service was performed by NPP) Yes Patient seen and examined by me. Agree with note by [employer] SEE ADDITIONAL ORDERS PER CHART DISCUSSED WITH NURSING STAFF KAREN MCCLOUD Jun 08, 2025 02:21
[2025-06-08] MEDS: LACTATED RINGERS 1000ML 1,000 ML IV SCH (03:23)
[2025-06-08] MEDS ORDERED: DEXTROSE 50%-WATER 50 ML DISP.SYRIN IV PRN (03:30)
[2025-06-08] MEDS ORDERED: GLUCAGON 1MG KIT 1 MG ML IM PRN (03:30)
[2025-06-08] MEDS ORDERED: PoTASSium chl 10% ELIXIR 20MEQ 20 MEQ/15 ML UDCUP PO PRN (03:30)
--- NOTE | 2025-06-08 03:37 | HMCIMG ---
EXAM: CR Chest, 1 view CLINICAL HISTORY: Evaluate the chest. COMPARISON: Chest radiograph dated 06/06/2025. FINDINGS: The lungs show no infiltrates or other acute findings. No pleural effusion or pneumothorax. The cardiomediastinal silhouette is within normal limits. Mild atherosclerotic aorta. No acute osseous abnormality. IMPRESSION: No acute cardiopulmonary process is evident. Compared to the prior study, there is no significant interval change. /[place]
[2025-06-08 03:40] LABS: ADD UA MICROSCOPIC YES; APPEARANCE,URINE CLEAR (CLEAR); GLUCOSE, URINE (UA) 70 mg/dL (NEGATIVE); LEUKOCYTE ESTERASE ,URINE NEGATIVE Leu/uL (NEGATIVE); NITRATE,URINE NEGATIVE (NEGATIVE); OCCULT BLOOD,URINE NEGATIVE (NEGATIVE)
--- NOTE | 2025-06-08 03:40 | NUR ---
ADMIT PT ADMITTED TO ROOM 321, AAOX3. NO DISTRESS NOTED. NO COMPLAINTS VERBALIZED. ADMISSION CARE DONE. ADMISSION V/S MONITORED, STABLE. ADMISSION ASSESSMENT DONE, PLEASE REFER TO CHART. CONTINUED IVF FROM ER OF LR REGULATED AT 100CC/HR. STARTED ON PO POTASSIUM PER PROTOCOL, TOLERATED WELL. ORIENTED TO ROOM AND UNIT. IN FOR MORE CARE AND MANAGEMENT. Addendum: 06/08/25 at 9005 by JAMES PADILLA RN RN Amended: Links added.
[2025-06-08 03:41] LABS: SQUAMOUS EPITHELIAL CELL,UR RARE /HPF (0-2)
[2025-06-08] MEDS: PoTASSium chloRIDE 20MEQ ER 20 MEQ ERTAB PO PRN (03:54)
[2025-06-08 05:58] LABS: IMMATURE GRANULOCYTE ABSOLUTE 0.01 K/uL (0-1); NUCLEATED RED BLOOD CELLS 0.0 % (0.0-0.19); PLATELET COUNT (AUTO) 236 K/uL (130-400); RED BLOOD CELL COUNT(AUTO) 3.07 MIL/uL (4.50-6.20); RED CELL DISTRIBUTION WIDTH 13.6 % (11.0-15.5); WHITE BLOOD COUNT (AUTO) 5.2 K/uL (4.8-10.8)
[2025-06-08 06:25] LABS: ASPARTATE AMINOTRANSFERASE 9.0 U/L (10-37); CREATINE KINASE, TOTAL 39.0 U/L (21-232); CREATININE 1.9 mg/dL (0.5-1.3); GLOMERULAR FILTR. RATE CALC 39.0 mL/min (>90); GLUCOSE,RANDOM 203.0 mg/dL (70-105); SODIUM SERUM 143.0 mmol/L (136-145); TOTAL PROTEIN, SERUM 6.1 g/dL (6.0-8.3); UREA NITROGEN, BLOOD 27.0 mg/dL (7-18)
[2025-06-08] MEDS: MAGNESIUM 2GM PREMIX 50ML 50 ML IV PRN (06:39)
[2025-06-08 09:17] LABS: % IRON SATURATION 19.5 % (30-44); IRON, SERUM 45.0 mcg/dL (65-175)
[2025-06-08 09:19] LABS: CREATINE KINASE, TOTAL 39.0 U/L (21-232)
--- NOTE | 2025-06-08 12:04 | NUR ---
DCP: INITIAL ASSESSMENT Patient states he is homeless X 1 month. He states he stays with friends or wherever he can day by day. Patient would not elaborate on where or with whom he was living. He states he has a brother but is not in communication with him. Patient agreeable to go to local homeless custodial but will need transportation to get there. MARA spoke with patient regarding applying for SSA benefits. He stated that he had thought about it but has not actually looked into doing so. SW informed patient that people at the homeless custodial may be able to assist him with applying for benefits. He stated that he would look into it once he was present at the homeless custodial. DCP accepting [facility] custodial. Addendum: 06/08/25 at 1209 by KHALIF RAMOS SS Amended: Links added.
[2025-06-08] MEDS: THIAMINE HCL 100 MG/ML 2ML VIAL IVP SCH (14:11)
[2025-06-08] MEDS: CYANOCOBALAMIN (VITAMIN B-12) 1,000 MCG TABLET PO SCH (15:49)
--- NOTE | 2025-06-08 18:41 | PN ---
[facility] PROGRESS NOTE Date of Service: Jun 08, 2025 Time of Service: 18:38 SUBJECTIVE: This is a 65 year old male who is a homeless with past medical history of hypertension,hyperlipidemia,diabetes and coronary artery disease /[place] with cardiac stent who was brought by EMS tot he Ed for complaints of bilateral lower extremity weakness which started yesterday.Apparently , he had came to ER 2 times this week due to chest pain and vomiting. CT abdomen was negative and he was discharged from ER.Patient reports he has not been drinking water much because he is homeless and today he has difficulty walking and he feels weak.Patient also states he is not taking any meds because he is not able to afford it.Patient reports he recently had a heart attack and had a cardiac stent x 1 he said.Patient denies fall injury,loss of consciousness,nausea,vomiting,chest pain,palpitation and shortness of breat h.Patient is able to move all extremities and follow commands. He has a surgical history of Toe amputation (right tma) ,cardiac cath stent x1. Patient is a homeless and states he smokes 10 cigarette/day and denies alcohol and recreational drug use. Latest vital signs temperature 97.5, heart rate 74, blood pressure 152/75. Labs: WBC 6, neutrophils 54 hemoglobin 9, hematocrit 27, platelet count 271. Potassium 3.3, BUN 30, creatinine 2, GFR 37, glucose 173 total calcium 8.3 troponin eight. Chest x-ray result is still pending at this time.Sinus rhythm HR70.While in the ER patient received 1 L LR bolus. He is admitted for further evaluation of his weakness. 06.08.25: Patient is seen and evaluated at the bedside . His vitals are stable and Labs are remarkable for RANDI on CKD(creatinine 2--->1.9: baseline 1.7), iron deficiency anemia .He complaints of sudden onset right lower extremity weakness yesterday .We will request CT head and spine, urine tox screen.He is being treated with multivitamins and iron . REVIEW OF SYSTEMS CONSTITUTIONAL: Denies fevers, chills, or night sweats. No unintentional weight loss reported. NEUROLOGICAL: complained of bilateral lower extremity weakness Denies headache, amaurosis fugax, sensory deficit, vertigo/spinning sensation, gait abnormalities, or tremors. ENT: No hearing loss, otalgia, otorrhea, rhinitis, rhinorrhea, hoarseness, or sore throat. CARDIOVASCULAR: Denies any exertional angina, dyspnea on exertion, orthopnea, paroxysmal nocturnal dyspnea, palpitations, life-threatening arrhythmias, claudication. PULMONARY: Denies any shortness of breath, cough, phlegm/sputum, hemoptysis, pleuritic chest pain. SLEEP: Denies morning headaches, daytime somnolence or napping. Denies difficulty falling asleep, staying asleep, waking from sleep. Denies knowledge of snoring. GASTROINTESTINAL: Denies any type of dysphagia to either liquids or solids. Denies nausea, vomiting, pyrosis, early satiety, abdominal pain, diarrhea, constipation, or changes in stool consistency or caliber. Denies coffee-ground emesis, hematemesis, hematochezia, or melanotic stools. GENITOURINARY: Denies frequency, urgency, nocturia, hematuria or incontinence (Storage/Irritative symptoms.) Low urinary stream, straining to void, urinary intermittency or hesitancy, splitting of the voiding stream, terminal dribbling. ENDOCRINOLOGIC: Denies polyuria, polydipsia, polyphagia or heat/cold intoleran aylin. HEMATOLOGIC: Denies thrombophilia/previous clots, or coagulopathy/bleeding disorders. ONCOLOGIC: Denies personal history of malignancy. DERMATOLOGIC: Denies rashes or pruritus. PSYCHIATRIC: Denies any suicidal or homicidal ideation. Denies hallucinations. PHYSICAL EXAM GENERAL APPEARANCE: The patient is awake, alert, and oriented, in no acute cardiopulmonary distress. NEUROLOGICAL: Cranial nerves II-XII grossly intact. Motor is 5/5 in bilateral upper and lower extremities proximal to distal. No sensory deficits. HEENT: Face is symmetric. Pupils are equal and reactive. Extraocular movements are intact. NECK: Supple. No JVD. No thyromegaly. No submental, submandibular, pre- /postauricular, occipital or supraclavicular lymphadenopathy. CHEST: Normal chest expansion. No Telemetry. LUNGS: Absence of any rales, rhonchi or any wheezing. CARDIOVASCULAR: Regular. S1 and S2 normal. No appreciable rubs, murmurs or gallops. ABDOMEN: Soft, nontender, and nondistended. There is no rebound, voluntary guarding, or rigidity. : Deferred. No Morgan. EXTREMITIES: Non-edematous and not cyanotic. No clubbing. Good capillary refill. SKIN: No skin breakdown. Vital Signs (last 8hr) Date Time Temp Pulse Resp B/P (MAP) Pulse Ox O2 Delivery O2 Flow Rate FiO2 06/08/25 16:00 97.5 64 18 119/68 98 Room Air 06/08/25 12:00 97.9 63 18 145/77 97 Room Air LABS: Laboratory: Test 06/08/25 16:03 06/08/25 08:34 06/08/25 05:40 06/08/25 03:27 Range/Units Whole Blood Glucose 151 H 70-110 MG/DL Reticulocyte Count (auto) 1.88488 0.42-2.23 % Immature Reticulocyte Fraction 7.00 H 0.18-0.48 % Lactic Acid Level 1.5 0.8-2.5 mmol/L Iron Level 45 L 65-175 mcg/dL Total Iron Binding Capacity 230 L 250-450 mcg/dL Percent Iron Saturation 19.5 L 30-44 % Ferritin 144 30-400 ng/mL Total Creatine Kinase 39 21-232 U/L Vitamin B12 Level 280 193-986 pg/mL Procalcitonin < 0.05 L 0.05-0.5 ng/mL Free Thyroxine (T4) Direct 1.15 0.76-1.46 ng/dL Free Triiodothyronine (T3) pg/mL 2.32 2.18-3.98 pg/mL White Blood Count 5.2 4.8-10.8 K/uL Red Blood Count 3.07 L 4.50-6.20 MIL/uL Hemoglobin 8.9 L 14.0-18.0 g/dL Hematocrit 25.7 L 42-54 % Mean Corpuscular Volume 83.7 79-99 fL Mean Corpuscular Hemoglobin 29.0 27.0-33.0 pg Mean Corpuscular Hemoglobin Concent 34.6 32.0-36.0 g/dL Red Cell Distribution Width 13.6 11.0-15.5 % Platelet Count 236 130-400 K/uL Mean Platelet Volume 10.6 H 7.5-10.5 fL Immature Granulocyte % (Auto) 0.2 0-1 % Neutrophils (%) (Auto) 50.0 40.0-77.0 % Lymphocytes (%) (Auto) 34.1 21.0-51.0 % Monocytes (%) (Auto) 8.3 3.0-13.0 % Eosinophils (%) (Auto) 6.6 0.0-8.0 % Basophils (%) (Auto) 0.8 0.0-5.0 % Neutrophils # (Auto) 2.6 1.8-7.7 K/uL Lymphocytes # (Auto) 1.8 1.0-4.8 K/uL Monocytes # (Auto) 0.4 0.1-1.0 K/uL Eosinophils # (Auto) 0.34 0.00-0.70 K/uL Basophils # (Auto) 0.04 0.00-0.20 K/uL Absolute Immature Granulocyte (auto 0.01 0-1 K/uL Nucleated Red Blood Cells 0.0 0.0-0.19 % Sodium Level 143 136-145 mmol/L Potassium Level 3.6 3.5-5.1 mmol/L Chloride Level 107 101-111 mmol/L Carbon Dioxide Level 27 21-32 mmol/L Blood Urea Nitrogen 27 H 7-18 mg/dL Creatinine 1.9 H 0.5-1.3 mg/dL Glomerular Filtration Rate Calc 39 >90 mL/min Random Glucose 203 H 70-105 mg/dL Hemoglobin A1c 6.8 H 4.0-6.0 % Estimated Average Glucose (eAG) 148 H 70-126 mg/dL Total Calcium 7.9 L 8.5-10.1 mg/dL Magnesium Level 1.80 1.80-2.40 mg/dL Total Bilirubin 0.2 0.2-1.0 mg/dL Aspartate Amino Transf (AST/SGOT) 9 L 10-37 U/L Alanine Aminotransferase (ALT/SGPT) 18 12-78 U/L Alkaline Phosphatase 87 50-136 U/L B-Type Natriuretic Peptide 33 0-100 pg/mL Total Protein 6.1 6.0-8.3 g/dL Albumin 2.7 L 3.5-5.0 g/dL Thyroid Stimulating Hormone (TSH) 0.24 L 0.36-3.74 uIU/mL Urine Color COLORLESS YELLOW Urine Appearance CLEAR CLEAR Urine pH 5.5 5.0-8.0 Urine Specific [place] 1.004 1.001-1.031 Urine Protein 50 H NEGATIVE mg/dL Urine Glucose (UA) 70 H NEGATIVE mg/dL Urine Ketones NEGATIVE NEGATIVE mg/dL Urine Occult Blood NEGATIVE NEGATIVE Urine Nitrate NEGATIVE NEGATIVE Urine Bilirubin NEGATIVE NEGATIVE mg/dL Urine Urobilinogen 0.2 0.2-1.0 mg/dL Urine Leukocyte Esterase NEGATIVE NEGATIVE Anahi/uL Urine RBC 0-1 0-1 /HPF Urine WBC 0-1 0-1 /HPF Urine Squamous Epithelial Cells RARE 0-2 /HPF Urine Bacteria None None Seen /HPF Test 06/08/25 01:34 Range/Units Troponin I High Sensitivity 8 4-75 ng/L Current Medications Medications (Trade) Dose Ordered Sig/Shay Route PRN Reason Start Time Stop Time Status Last Admin Dose Admin Acetaminophen (TYLenol 325MG TAB) 650 mg Q4H PRN PO MILD PAIN (1-3) 06/08/25 03:30 07/08/25 03:29 Acetaminophen (TYLenol 325MG TAB) 650 mg Q6H PRN PO TEMPERATURE GREATER THAN 101.5 06/08/25 03:30 07/08/25 03:29 Dextrose (D50w) 50 ml AD PRN IV HYPOGLYCEMIA PROTOCOL 06/08/25 03:30 07/08/25 03:29 Glucagon (Glucagon 1mg Kit) 1 mg AD PRN IM HYPOGLYCEMIA PROTOCOL 06/08/25 03:30 07/08/25 03:29 Insulin Human Regular (humuLIN R 100 UNIT/ML 3ML) INSULIN SLIDING SCAL... ACHS SQ 06/08/25 07:30 07/08/25 07:29 06/08/25 06:05 2 UNIT Iron Sucrose (VenoFER) 200 mg DAILY IV 06/09/25 09:00 06/12/25 08:59 Lactated Ringer's 1,000 ml @ 100 mls/hr Q10H IV 06/08/25 03:30 07/08/25 03:29 06/08/25 18:03 100 MLS/HR Magnesium Sulfate 50 ml @ 0 mls/hr PROTOCOL PRN IV OTHER [SEE ORDER COMMENTS] 06/08/25 03:30 07/08/25 03:29 06/08/25 06:39 25 MLS/HR Ondansetron HCl (zoFRAN 4MG INJ) 4 mg Q6H PRN IV NAUSEA/VOMITING 06/08/25 03:30 07/08/25 03:29 Pantoprazole Sodium (PROTonix 40MG TAB) 40 mg DAILY PO 06/08/25 09:00 07/08/25 08:59 06/08/25 09:55 40 MG Potassium Chloride 100 ml @ 100 mls/hr AD PRN IV POTASSIUM PROTOCOL 06/08/25 03:30 07/08/25 03:29 Potassium Chloride (K-Dur/Klor-Con 20meq) 20 meq AD PRN PO POTASSIUM PROTOCOL 06/08/25 03:30 07/08/25 03:29 06/08/25 06:04 20 MEQ Potassium Chloride (KCl 10% Elixir 20meq/15ml) 20 meq AD PRN PO POTASSIUM PROTOCOL 06/08/25 03:30 07/08/25 03:29 Thiamine HCl (Vitamin B-1) 200 mg DAILY IVP 06/08/25 11:30 07/08/25 11:29 06/08/25 14:11 200 MG Vitamin B Complex (Vitamin B-12) 1,000 mcg DAILY PO 06/08/25 15:00 07/08/25 14:59 06/08/25 15:49 1,000 [facility] RADIOLOGY: [place] [address] IMAGING REPORT Signed PATIENT: SAUL SALAS MR#: [id number] : 1960 SEX: M AGE: 65 LOCATION: [facility] ORDER 1 STATUS: ADM IN REPORT#: [id number] SERVICE 1 REASON: c ORDERING PHYSICIAN: RAYA OMALLEY MD PROCEDURE: CXR1VW - CHEST 1VW EXAM: CR Chest, 1 view CLINICAL HISTORY: Evaluate the chest. COMPARISON: Chest radiograph dated 06/06/2025. FINDINGS: The lungs show no infiltrates or other acute findings. No pleural effusion or pneumothorax. The cardiomediastinal silhouette is within normal limits. Mild atherosclerotic aorta. No acute osseous abnormality. IMPRESSION: No acute cardiopulmonary process is evident. Compared to the prior study, there is no significant interval change. /[place] DICTATED BY: ERNESTINA THIBODEAUX Jr., MD DATE: 06/08/25435 ELECTRONICALLY SIGNED BY: ERNESTINA THIBODEAUX Jr., MD DATE: 06/08/25435 ASSESSMENT: Acute dehydration POA Acute on chronic iron deficiency anemia POA Right lower extremity weakness POA Hypokalemia POA Acute kidney injury on CKD stage 3POA Uncontrolled diabetes POA, A1c 6.8 Hypertension POA Hyperlipidemia POA Nicotine Dependence POA Homelessness POA PLAN: Patient is admitted to [facility] floor. IMPRESSION ACUTE PROBLEMS CHRONIC PROBLEMS PLAN NEURO: Patient is alert and oriented. Patient complains of sudden onset of right lower extremity weakness of1 day duration On examination , patient's right foot with TMA status-surgical wound looks healthy. Right lower extremity power is 3 to 4/5 , sensations intact. Pending CT lumbar spine and CT head results recent CT abdomen : Osseous structures demonstrate severe disease at L5-S1. There is ventral marginal spur at L4-L5 and lower thoracic spine. Minimize central acting medications as possible. Fall Precautions. PULMONARY: Patient is breathing comfortable in room air with SpO2 98% Chest x-ray shows right perihilar infiltrates Supplemental 02 as needed Titrate Fio2 to keep Spo2 > or = 90% DuoNebs and CPT as needed Out of bed to chair as tolerated CARDIOVASCULAR: Patient with history of CAD status post stent insertion Patient denied any chest pain at this time Vitals remained stable Follow hemodynamics. GI & NUTRITION: Continue nutritional support Aspirations precautions Prokinetic agents and laxatives as needed KIDNEYS & ELECTROLYTES: Patient with acute dehydration and acute on chronic renal failure CKD stage 3 A Continue IV hydration Strict monitoring of intake and output Daily weights Avoid nephrotoxic agents Monitor electrolytes and replace as needed Goal urine output of 30mL/hr or 0.5mL/kg/hr ENDOCRINE: TSH 0.24, T3 2.32, T4 1.15-probably transient thyroid dysfunction Repeat thyroid panel after3 weeks Maintain blood glucose between 100-180 at all times. Insulin sliding scale for blood glucose management INFECTIOUS DISEASE: Lactic acid at 1.5 Trend temperature. Purvis-culture if febrile. Micro: NA Antibiotics: none HEMATOLOGY & COAGULATION: Hemoglobin decreased from 9.8-8.9. TSAT 19.5 Patient with iron-deficiency anemia He is being treated with IV IM, vitamin B12, thiamine Monitor H&H. Keep Hgb > 7 Transfuse 1 unit of PRBC for Hgb < 7 Transfuse 1 pack of platelets of platelets < 20, 000 Watch for any signs and symptoms of bleeding SKIN: Pressure ulcer prevention per facility protocol PREVENTATIVE : Room environment appropriate for patient's condition (Delirium prevention) We will avoid benzodiazepines and narcotics DVT prophylaxis : SCDs (DVT and PE prevention) GI prophylaxis : Protonix Urinary catheter daily assessment done: Voids Intravenous access daily assessment done: Peripheral IVs Skin evaluation done in admission: No active wounds Rehab: PT/OT Code Status: Full Resuscitation Disposition: Med surg ATTESTATION BY PHYSICIAN I have seen and examined the patient. I reviewed the documentation, medical decision making, and treatment plan as noted by the resident provider above. I agree with the findings and plan of care. Eric Loco MD, AKSHAY MD Jun 08, 2025 18:41 MANISHA BEY MD Jun 08, 2025 20:09
[2025-06-09] VITALS (7 sets, daily range): BP systolic 150–177; BP diastolic 69–84; PULSE 50–65; RESP 18–20; TEMP 97.7–98.4; O2SAT 97
--- NOTE | 2025-06-09 05:15 | NUR ---
PATIENT UPDATE PT ALERT AND ORIENTED, DENIES ANY DISCOMFORT. SLEPT WELL OVERNIGHT. AMBULATES TO THE RESTROOM WITH ASSISTANCE, USES HIS CANE TO AMBULATE. SHOWERED AGAIN LAST NIGHT. STATED THAT HE USUALLY SHOWERS BETWEEN 2 TO 3 TIMES PER DAY, VOIDING WITHOUT ANY PROBLEMS, NO BLADDER DISTENTION NOTED, NO NEED FOR A BLADDER SCAN. CONTINUES WITH THE HYDRATION WITH LR AT 100 CC/HR, TAKING PO LIQUIDS WELL, APETITE BETTER, NO COMPLAINTS OF NAUSEA AND VOMITING.
[2025-06-09 05:54] LABS: NUCLEATED RED BLOOD CELLS 0.0 % (0.0-0.19); PLATELET COUNT (AUTO) 208.0 K/uL (130-400); RED BLOOD CELL COUNT(AUTO) 3.22 MIL/uL (4.50-6.20); RED CELL DISTRIBUTION WIDTH 13.8 % (11.0-15.5); WHITE BLOOD COUNT (AUTO) 6.5 K/uL (4.8-10.8)
[2025-06-09 06:48] LABS: CREATININE 1.9 mg/dL (0.5-1.3); GLOMERULAR FILTR. RATE CALC 39.0 mL/min (>90); GLUCOSE,RANDOM 174.0 mg/dL (70-105); SODIUM SERUM 142.0 mmol/L (136-145); UREA NITROGEN, BLOOD 24.0 mg/dL (7-18)
[2025-06-09 08:09] LABS: COVID19 (SARS ANTIGEN RAPID) PRESUMPTIVE NEGATIVE (NEGATIVE); INFLUENZA TYPE A Negative For Type A (NEGATIVE); INFLUENZA TYPE B Negative For Type B (NEGATIVE)
--- NOTE | 2025-06-09 08:16 | HMCIMG ---
EXAM: CR Lumbar Spine, 3 views. CLINICAL HISTORY: Pain. COMPARISON: None. FINDINGS: Straightening of the normal lordotic curvature. Moderate lumbar spondylosis with multilevel marginal osteophytes, facet arthropathy and degenerative disc space reduction at L5-S1. Normal vertebral body heights. No acute fracture. Soft tissues are within normal limits. Atheromatous vascular calcification. IMPRESSION: No acute bony changes. Straightening of the normal lordotic curvature reflects paraspinal muscle spasm. Moderate lumbar spondylosis with multilevel marginal osteophytes, facet arthropathy and degenerative disc space reduction at L5-S1. /[place]
--- NOTE | 2025-06-09 08:23 | HMCIMG ---
EXAM: X-Ray sacrum and coccyx 3 views. CLINICAL HISTORY: Weakness of the right foot. COMPARISON: None provided. FINDINGS: No acute fracture or aggressive appearing osseous lesion. Joint spaces are within normal limits. The soft tissues are unremarkable. Atheromatous vascular calcification. IMPRESSION: No acute osseous abnormality. /[place]
--- NOTE | 2025-06-09 08:27 | HMCIMG ---
EXAM: X-Ray Pelvis and Bilateral Hip, 2 views. CLINICAL HISTORY: Back pain. COMPARISON: None provided. FINDINGS: No acute fracture or aggressive appearing osseous lesion. Mild bilateral hip joint osteoarthritis evident by mild asymmetric joint space reduction. The soft tissues are unremarkable. Atheromatous vascular calcification. IMPRESSION: No acute osseous abnormality. Mild bilateral hip joint osteoarthritis evident by mild asymmetric joint space reduction. /[place]
--- NOTE | 2025-06-09 13:36 | PN ---
[facility] PROGRESS NOTE Date of Service: Jun 09, 2025 Time of Service: 13:31 SUBJECTIVE: This is a 65 year old male who is a homeless with past medical history of hypertension,hyperlipidemia,diabetes and coronary artery disease /OR with cardiac stent who was brought by EMS tot he Ed for complaints of bilateral lower extremity weakness which started yesterday.Apparently , he had came to ER 2 times this week due to chest pain and vomiting. CT abdomen was negative and he was discharged from ER.Patient reports he has not been drinking water much because he is homeless and today he has difficulty walking and he feels weak.Patient also states he is not taking any meds because he is not able to afford it.Patient reports he recently had a heart attack and had a cardiac stent x 1 he said.Patient denies fall injury,loss of consciousness,nausea,vomiting,chest pain,palpitation and shortness of breat h.Patient is able to move all extremities and follow commands. He has a surgical history of Toe amputation (right tma) ,cardiac cath stent x1. Patient is a homeless and states he smokes 10 cigarette/day and denies alcohol and recreational drug use. Latest vital signs temperature 97.5, heart rate 74, blood pressure 152/75. Labs: WBC 6, neutrophils 54 hemoglobin 9, hematocrit 27, platelet count 271. Potassium 3.3, BUN 30, creatinine 2, GFR 37, glucose 173 total calcium 8.3 troponin eight. Chest x-ray result is still pending at this time.Sinus rhythm HR70.While in the ER patient received 1 L LR bolus. He is admitted for further evaluation of his weakness. 06.08.25: Patient is seen and evaluated at the bedside . His vitals are stable and Labs are remarkable for RANDI on CKD(creatinine 2--->1.9: baseline 1.7), iron deficiency anemia .He complaints of sudden onset right lower extremity weakness yesterday .We will request CT head and spine, urine tox screen.He is being treated with multivitamins and iron . 06/09/2025: Lying in bed at the time of evaluation. Alert and oriented and in no obvious distress. Patient states that he feels a lot better. Can walk to the restroom with mild difficulty. Vital sigs: Temperature 98.1, Pulse 56, R 20. BP 150/84, maintaining saturation at 98% on room air. Labs showed a WBC 6.5, Hb 9.3, Hct 28.3, Sodium 142, Potassium 4.3, BUN 24 , Cr 1.9. Xray of the lumbar spine showed no acute bony changes. Moderate lumbar spondylosis with multilevel marginal osteophytes, facet arthropathy and degenerative disc space reduction at L5-S1. Xray of the hips/pelvis and sacrum/coccyx showed no acute osseous abnormality. Still pending CT of the head and lumbar spine. Orders have been placed for physical therapy to evaluate and ambulate the patient. Plan is for discharge tomorrow if patient remains hemodynamically stable. REVIEW OF SYSTEMS CONSTITUTIONAL: Denies fevers, chills, or night sweats. No unintentional weight loss reported. NEUROLOGICAL: complained of bilateral lower extremity weakness Denies headache, amaurosis fugax, sensory deficit, vertigo/spinning sensation, gait abnormalities, or tremors. ENT: No hearing loss, otalgia, otorrhea, rhinitis, rhinorrhea, hoarseness, or sore throat. CARDIOVASCULAR: Denies any exertional angina, dyspnea on exertion, orthopnea, paroxysmal nocturnal dyspnea, palpitations, life-threatening arrhythmias, claudication. PULMONARY: Denies any shortness of breath, cough, phlegm/sputum, hemoptysis, pleuritic chest pain. SLEEP: Denies morning headaches, daytime somnolence or napping. Denies difficulty falling asleep, staying asleep, waking from sleep. Denies knowledge of snoring. GASTROINTESTINAL: Denies any type of dysphagia to either liquids or solids. Denies nausea, vomiting, pyrosis, early satiety, abdominal pain, diarrhea, constipation, or changes in stool consistency or caliber. Denies coffee-ground emesis, hematemesis, hematochezia, or melanotic stools. GENITOURINARY: Denies frequency, urgency, nocturia, hematuria or incontinence (Storage/Irritative symptoms.) Low urinary stream, straining to void, urinary intermittency or hesitancy, splitting of the voiding stream, terminal dribbling. ENDOCRINOLOGIC: Denies polyuria, polydipsia, polyphagia or heat/cold intolerances. HEMATOLOGIC: Denies thrombophilia/previous clots, or coagulopathy/bleeding disorders. ONCOLOGIC: Denies personal history of malignancy. DERMATOLOGIC: Denies rashes or pruritus. PSYCHIATRIC: Denies any suicidal or homicidal ideation. Denies hallucinations. PHYSICAL EXAM GENERAL APPEARANCE: The patient is awake, alert, and oriented, in no acute cardiopulmonary distress. NEUROLOGICAL: Cranial nerves II-XII grossly intact. Motor is 5/5 in bilateral upper and lower extremities proximal to distal. No sensory deficits. HEENT: Face is symmetric. Pupils are equal and reactive. Extraocular movements are intact. NECK: Supple. No JVD. No thyromegaly. No submental, submandibular, pre- /postauricular, occipital or supraclavicular lymphadenopathy. CHEST: Normal chest expansion. No Telemetry. LUNGS: Absence of any rales, rhonchi or any wheezing. CARDIOVASCULAR: Regular. S1 and S2 normal. No appreciable rubs, murmurs or gallops. ABDOMEN: Soft, nontender, and nondistended. There is no rebound, voluntary guarding, or rigidity. : Deferred. No Morgan. EXTREMITIES: Non-edematous and not cyanotic. No clubbing. Good capillary refill. SKIN: No skin breakdown. Vital Signs (last 8hr) Date Time Temp Pulse Resp B/P (MAP) Pulse Ox O2 Delivery O2 Flow Rate FiO2 06/09/25 08:00 98.2 52 18 163/84 97 Room Air LABS: Laboratory: Test 06/09/25 11:24 06/09/25 07:28 06/09/25 05:38 06/08/25 08:34 Range/Units Whole Blood Glucose 194 H 70-110 MG/DL Influenza Type A Antigen Negative For Type A NEGATIVE Influenza Type B Antigen Negative For Type B NEGATIVE SARS-CoV-2 Antigen (Rapid) PRESUMPTIVE NEGATIVE NEGATIVE White Blood Count 6.5 4.8-10.8 K/uL Red Blood Count 3.22 L 4.50-6.20 MIL/uL Hemoglobin 9.3 L 14.0-18.0 g/dL Hematocrit 28.3 L 42-54 % Mean Corpuscular Volume 87.9 79-99 fL Mean Corpuscular Hemoglobin 28.9 27.0-33.0 pg Mean Corpuscular Hemoglobin Concent 32.9 32.0-36.0 g/dL Red Cell Distribution Width 13.8 11.0-15.5 % Platelet Count 208 130-400 K/uL Mean Platelet Volume 10.5 7.5-10.5 fL Nucleated Red Blood Cells 0.0 0.0-0.19 % Sodium Level 142 136-145 mmol/L Potassium Level 4.3 3.5-5.1 mmol/L Chloride Level 108 101-111 mmol/L Carbon Dioxide Level 28 21-32 mmol/L Blood Urea Nitrogen 24 H 7-18 mg/dL Creatinine 1.9 H 0.5-1.3 mg/dL Glomerular Filtration Rate Calc 39 >90 mL/min Random Glucose 174 H 70-105 mg/dL Lactic Acid Level 1.5 0.8-2.5 mmol/L Total Calcium 8.0 L 8.5-10.1 mg/dL Reticulocyte Count (auto) 1.38697 0.42-2.23 % Immature Reticulocyte Fraction 7.00 H 0.18-0.48 % Iron Level 45 L 65-175 mcg/dL Total Iron Binding Capacity 230 L 250-450 mcg/dL Percent Iron Saturation 19.5 L 30-44 % Ferritin 144 30-400 ng/mL Total Creatine Kinase 39 21-232 U/L Vitamin B12 Level 280 193-986 pg/mL Procalcitonin < 0.05 L 0.05-0.5 ng/mL Free Thyroxine (T4) Direct 1.15 0.76-1.46 ng/dL Free Triiodothyronine (T3) pg/mL 2.32 2.18-3.98 pg/mL Test 06/08/25 05:40 06/08/25 03:27 06/08/25 01:34 Range/Units Immature Granulocyte % (Auto) 0.2 0-1 % Neutrophils (%) (Auto) 50.0 40.0-77.0 % Lymphocytes (%) (Auto) 34.1 21.0-51.0 % Monocytes (%) (Auto) 8.3 3.0-13.0 % Eosinophils (%) (Auto) 6.6 0.0-8.0 % Basophils (%) (Auto) 0.8 0.0-5.0 % Neutrophils # (Auto) 2.6 1.8-7.7 K/uL Lymphocytes # (Auto) 1.8 1.0-4.8 K/uL Monocytes # (Auto) 0.4 0.1-1.0 K/uL Eosinophils # (Auto) 0.34 0.00-0.70 K/uL Basophils # (Auto) 0.04 0.00-0.20 K/uL Absolute Immature Granulocyte (auto 0.01 0-1 K/uL Hemoglobin A1c 6.8 H 4.0-6.0 % Estimated Average Glucose (eAG) 148 H 70-126 mg/dL Magnesium Level 1.80 1.80-2.40 mg/dL Total Bilirubin 0.2 0.2-1.0 mg/dL Aspartate Amino Transf (AST/SGOT) 9 L 10-37 U/L Alanine Aminotransferase (ALT/SGPT) 18 12-78 U/L Alkaline Phosphatase 87 50-136 U/L B-Type Natriuretic Peptide 33 0-100 pg/mL Total Protein 6.1 6.0-8.3 g/dL Albumin 2.7 L 3.5-5.0 g/dL Thyroid Stimulating Hormone (TSH) 0.24 L 0.36-3.74 uIU/mL Urine Color COLORLESS YELLOW Urine Appearance CLEAR CLEAR Urine pH 5.5 5.0-8.0 Urine Specific [place] 1.004 1.001-1.031 Urine Protein 50 H NEGATIVE mg/dL Urine Glucose (UA) 70 H NEGATIVE mg/dL Urine Ketones NEGATIVE NEGATIVE mg/dL Urine Occult Blood NEGATIVE NEGATIVE Urine Nitrate NEGATIVE NEGATIVE Urine Bilirubin NEGATIVE NEGATIVE mg/dL Urine Urobilinogen 0.2 0.2-1.0 mg/dL Urine Leukocyte Esterase NEGATIVE NEGATIVE Anahi/uL Urine RBC 0-1 0-1 /HPF Urine WBC 0-1 0-1 /HPF Urine Squamous Epithelial Cells RARE 0-2 /HPF Urine Bacteria None None Seen /HPF Troponin I High Sensitivity 8 4-75 ng/L Current Medications Medications (Trade) Dose Ordered Sig/Shay Route PRN Reason Start Time Stop Time Status Last Admin Dose Admin Acetaminophen (TYLenol 325MG TAB) 650 mg Q4H PRN PO MILD PAIN (1-3) 06/08/25 03:30 07/08/25 03:29 Acetaminophen (TYLenol 325MG TAB) 650 mg Q6H PRN PO TEMPERATURE GREATER THAN 101.5 06/08/25 03:30 07/08/25 03:29 Dextrose (D50w) 50 ml AD PRN IV HYPOGLYCEMIA PROTOCOL 06/08/25 03:30 07/08/25 03:29 Glucagon (Glucagon 1mg Kit) 1 mg AD PRN IM HYPOGLYCEMIA PROTOCOL 06/08/25 03:30 07/08/25 03:29 Insulin Human Regular (humuLIN R 100 UNIT/ML 3ML) INSULIN SLIDING SCAL... ACHS SQ 06/08/25 07:30 07/08/25 07:29 06/09/25 12:35 2 UNIT Iron Sucrose (VenoFER) 200 mg DAILY IV 06/09/25 09:00 06/12/25 08:59 06/09/25 09:16 200 MG Lactated Ringer's 1,000 ml @ 75 mls/hr [id number] IV 06/08/25 03:30 07/08/25 03:29 06/08/25 20:58 75 MLS/HR Magnesium Sulfate 50 ml @ 0 mls/hr PROTOCOL PRN IV OTHER [SEE ORDER COMMENTS] 06/08/25 03:30 07/08/25 03:29 06/08/25 06:39 25 MLS/HR Ondansetron HCl (zoFRAN 4MG INJ) 4 mg Q6H PRN IV NAUSEA/VOMITING 06/08/25 03:30 07/08/25 03:29 Pantoprazole Sodium (PROTonix 40MG TAB) 40 mg DAILY PO 06/08/25 09:00 07/08/25 08:59 06/09/25 09:16 40 MG Potassium Chloride 100 ml @ 100 mls/hr AD PRN IV POTASSIUM PROTOCOL 06/08/25 03:30 07/08/25 03:29 Potassium Chloride (K-Dur/Klor-Con 20meq) 20 meq AD PRN PO POTASSIUM PROTOCOL 06/08/25 03:30 07/08/25 03:29 06/08/25 06:04 20 MEQ Potassium Chloride (KCl 10% Elixir 20meq/15ml) 20 meq AD PRN PO POTASSIUM PROTOCOL 06/08/25 03:30 07/08/25 03:29 Thiamine HCl (Vitamin B-1) 200 mg DAILY IVP 06/08/25 11:30 07/08/25 11:29 06/09/25 09:16 200 MG Vitamin B Complex (Vitamin B-12) 1,000 mcg DAILY PO 06/08/25 15:00 07/08/25 14:59 06/09/25 09:16 1,000 MCG DIAGNOSTICS / RADIOLOGY: PATIENT: SAUL SALAS MR#: [id number] : 1960 SEX: M AGE: 65 LOCATION: [facility] ORDER [id number] STATUS: ADM IN REPORT#: [id number] SERVICE 1432 REASON: weakness of his right foot ORDERING PHYSICIAN: NOEMI HEART MD PROCEDURE: SAC ALINA 2V - SACRUM/COCCYX 2+VWS EXAM: X-Ray sacrum and coccyx 3 views. CLINICAL HISTORY: Weakness of the right foot. COMPARISON: None provided. FINDINGS: No acute fracture or aggressive appearing osseous lesion. Joint spaces are within normal limits. The soft tissues are unremarkable. Atheromatous vascular calcification. IMPRESSION: No acute osseous abnormality. /[place] DICTATED BY: CHANDLER NORTH MD DATE: 06/09/25921 ELECTRONICALLY SIGNED BY: CHANDLER NORTH MD DATE: 06/09/25921 PATIENT: SAUL SALAS MR#: [id number] : 1960 SEX: M AGE: 65 LOCATION: [facility] ORDER [id number] STATUS: ADM IN [facility] REPORT#: [id number] SERVICE 1210 REASON: back pain ORDERING PHYSICIAN: NOEMI HEART MD PROCEDURE: LUMB 2 3VW - LUMBAR SPINE 2-3VWS EXAM: CR Lumbar Spine, 3 views. CLINICAL HISTORY: Pain. COMPARISON: None. FINDINGS: Straightening of the normal lordotic curvature. Moderate lumbar spondylosis with multilevel marginal osteophytes, facet arthropathy and degenerative disc space reduction at L5-S1. Normal vertebral body heights. No acute fracture. Soft tissues are within normal limits. Atheromatous vascular calcification. IMPRESSION: No acute bony changes. Straightening of the normal lordotic curvature reflects paraspinal muscle spasm. Moderate lumbar spondylosis with multilevel marginal osteophytes, facet arthropathy and degenerative disc space reduction at L5-S1. /[place] DICTATED BY: CHANDLER NORTH MD DATE: 06/09/25914 ELECTRONICALLY SIGNED BY: CHANDLER NORTH MD DATE: 06/09/25914 PATIENT: SAUL SALAS MR#: [id number] : 1960 SEX: M AGE: 65 LOCATION: [facility] ORDER STATUS: ADM IN [facility] REPORT#: [id number] SERVICE 1210 REASON: back pain ORDERING PHYSICIAN: NOEMI HEART MD PROCEDURE: HIPS B 2V - HIP BILAT 2VW EXAM: X-Ray Pelvis and Bilateral Hip, 2 views. CLINICAL HISTORY: Back pain. COMPARISON: None provided. FINDINGS: No acute fracture or aggressive appearing osseous lesion. Mild bilateral hip joint osteoarthritis evident by mild asymmetric joint space reduction. The soft tissues are unremarkable. Atheromatous vascular calcification. IMPRESSION: No acute osseous abnormality. Mild bilateral hip joint osteoarthritis evident by mild asymmetric joint space reduction. /[place] DICTATED BY: CHANDLER NORTH MD DATE: 06/09/25925 ELECTRONICALLY SIGNED BY: CHANDLER NORTH MD DATE: 06/09/25925 ASSESSMENT: Acute dehydration POA Acute on chronic iron deficiency anemia POA Right lower extremity weakness POA Hypokalemia POA Acute kidney injury on CKD stage 3POA Uncontrolled diabetes POA, A1c 6.8 Hypertension POA Hyperlipidemia POA Nicotine Dependence POA Homelessness POA PLAN: Plan for discharge tomorrow if patient remains hemodynamically stable Acute dehydration POA *Continue with adequate hydration LR @75ML/H Acute on chronic iron deficiency anemia POA *Monitor H & H. Keep Hgb > 7 *Transfuse 1 unit of PRBC for Hgb < 7 Right lower extremity weakness POA *Physical Therapy to evaluate and ambulate. *Xray of the lumbar spine showed no acute bony changes. Moderate lumbar spondylosis with multilevel marginal osteophytes, facet arthropathy and degenerative disc space reduction at L5-S1. *Xray of the hips/pelvis and sacrum/coccyx showed no acute osseous abnormality. *Still pending CT of the head and lumbar spine. Acute kidney injury on CKD stage 3 POA *Discontinue all nephrotoxic agents *Monitor electrolytes and replace as needed *Goal urine output of 30 ml/h or 0.5ml/kg/hr *Medications to be dosed according to renal function *Avoid the use of contrast if possible. Uncontrolled diabetes POA, A1c 6.8 *Insulin sliding scale for blood glucose management *Hyperglycemia and hypoglycemia protocols in place Hypertension POA Hyperlipidemia POA *Follow hemodynamics. *Vital signs per facility protocol Nicotine Dependence POA Homelessness POA *Discussed the need to go to a homeless alf upon discharge and the need to stop smoking. *Case management and social workers are on the case. ATTESTATION BY PHYSICIAN I have seen and examined the patient. I reviewed the documentation, medical decision making, and treatment plan as noted by resident above. I agree with the findings and plan of care. FERNANDO ROMAN MD OBIDAVID MD Jun 09, 2025 13:36
--- NOTE | 2025-06-09 14:16 | NUR ---
Pt refused PT intervention today. Pt states that he is "tired" and not agreeable to participate in ambulation or transfer training. Nurse was notified.
--- NOTE | 2025-06-09 14:46 | HMCIMG ---
EXAM: CT Head Without IV contrast. CLINICAL HISTORY: weakness in right lower extremity TECHNIQUE: Axial computed tomography images of the head/brain without intravenous contrast. COMPARISON: None provided. FINDINGS: BRAIN: Moderate cerebral and cerebellar atrophy- prominent sulcal spaces, sylvian fissures, bilateral lateral ventricles and folia respectively. Patchy ill-defined hypodense areas are seen in periventricular white matter, burton radiata, centrum semiovale and fronto-parietal white matter regions bilaterally. Chronic lacunar infarcts in bilateral lentiform nuclei and stephon.No evidence of acute hemorrhage. No mass lesion. No CT evidence for acute territorial infarct. No midline shift or extra-axial collections. VENTRICLES: No hydrocephalus. ORBITS: The orbits are unremarkable. SINUSES AND MASTOIDS: The paranasal sinuses and mastoid air cells are clear. BONES: No fracture. SOFT TISSUES: Unremarkable. IMPRESSION: No acute bleed or infarct. Chronic ischemic and atrophic changes. Chronic lacunar infarcts in bilateral lentiform nuclei and stephon. /[place]
--- NOTE | 2025-06-09 15:02 | HMCIMG ---
EXAM: CT Lumbar Spine Without IV contrast. CLINICAL HISTORY: back pain and weakness of right lower extremity TECHNIQUE: Axial computed tomography images of the lumbar spine without intravenous contrast. Sagittal and coronal reformatted images were generated. COMPARISON: None provided. FINDINGS: ALIGNMENT: Bony alignment is anatomic. DISCS/DEGENERATIVE CHANGES: Degenerative changes manifested by anterior osteophytic lippings of the vertebral end plates and vacuum phenomena at few intervertebral disc levels. Vacuum phenomena in bilateral SI joint noted. Facetal arthropathy noted at right L1-L2, right L2-L3, bilateral L5-S1 levels. Multilevel reduced intervertebral disc spaces with mild disc bulges inducing mild foraminal stenosis. At level L5-S1 intervertebral disc posterior herniation or bulging with bilateral foraminal stenosis.BONES: No acute fracture or aggressive appearing osseous lesion. SOFT TISSUES: The soft tissues are unremarkable. IMPRESSION: No acute fracture or dislocation. Degenerative changes as described above. Multiple disc levels bulging and spinal or foraminal stenosis - MRI correlation is recommended for better characterization.Facetal arthropathy noted at right L1-L2, right L2-L3, bilateral L5-S1 levels. At level L5-S1 intervertebral disc posterior herniation or bulging with bilateral foraminal stenosis. /[place]
[2025-06-10] VITALS (7 sets, daily range): BP systolic 119–195; BP diastolic 56–87; PULSE 53–77; RESP 18–20; TEMP 97.9–98.1; O2SAT 96
[2025-06-10 09:01] LABS: NUCLEATED RED BLOOD CELLS 0.0 % (0.0-0.19); PLATELET COUNT (AUTO) 218.0 K/uL (130-400); RED BLOOD CELL COUNT(AUTO) 3.43 MIL/uL (4.50-6.20); RED CELL DISTRIBUTION WIDTH 13.7 % (11.0-15.5); WHITE BLOOD COUNT (AUTO) 5.4 K/uL (4.8-10.8)
[2025-06-10 09:10] LABS: CREATININE 1.7 mg/dL (0.5-1.3); GLOMERULAR FILTR. RATE CALC 44.0 mL/min (>90); GLUCOSE,RANDOM 137.0 mg/dL (70-105); SODIUM SERUM 142.0 mmol/L (136-145); UREA NITROGEN, BLOOD 26.0 mg/dL (7-18)
--- NOTE | 2025-06-10 11:11 | DS ---
Discharge Summary Hospital Course Summary: A 65-year-old male with a history of hypertension, hyperlipidemia, diabetes mellitus, coronary artery disease (status post recent myocardial infarction and stent placement), chronic kidney disease, and right transmetatarsal amputation presented with acute bilateral lower extremity weakness and functional decline. The patient is homeless, with limited access to medications and nutrition, and reported poor oral intake and medication nonadherence. On admission, he was hemodynamically stable and alert, with no focal neurological deficits. Initial laboratory evaluation revealed acute kidney injury on chronic kidney disease (creatinine 2.0, baseline 1.7), iron deficiency anemia (hemoglobin 9 g/dL), mild hypokalemia, and hyperglycemia. Troponin was elevated, interpreted in the context of underlying CKD and recent cardiac history. Chest x-ray was performed and patient was given 1 L LR bolus. During hospitalization, the patient received intravenous fluids for volume depletion and supportive care. CT head and spine and urine tox screen was performed for his right lower extremity weakness, also a x-ray of the lumbar spine was performed. Chest x-ray showed no acute cardiopulmonary process while the lumbar spine x-ray showed no acute bony changes with straightening of the normal lordotic curvature reflects paraspinal muscle spasm. Moderate lumbar spondylosis with multilevel marginal osteophytes, facet arthropathy and degenerative disc space reduction at L5-S1. A hip/pelvis x-ray showed no acute osseous abnormality, same as the sacrum coccyx x-ray with mild bilateral hip joint osteoarthritis. His head CT showed no acute bleed or infarct while the lumbar CT also showed no acute fracture or dislocation. Patient started improving he was able to walk with the help of physical therapy and could walk on his own to the restroom with mild difficulty. At this point we are discharging the patient as he is hemodynamically stable, alert and oriented and is able to walk again. Procedure(s): [place] [address] [place] [id number] IMAGING REPORT Signed PATIENT: SAUL SALAS MR#: [id number] : 1960 SEX: M AGE: 65 LOCATION: [facility] ORDER 1 STATUS: ADM IN REPORT#: [id number] SERVICE 1 REASON: c ORDERING PHYSICIAN: RAYA OMALLEY MD PROCEDURE: CXR1VW - CHEST 1VW EXAM: CR Chest, 1 view CLINICAL HISTORY: Evaluate the chest. COMPARISON: Chest radiograph dated 06/06/2025. FINDINGS: The lungs show no infiltrates or other acute findings. No pleural effusion or pneumothorax. The cardiomediastinal silhouette is within normal limits. Mild atherosclerotic aorta. No acute osseous abnormality. IMPRESSION: No acute cardiopulmonary process is evident. Compared to the prior study, there is no significant interval change. /[place] DICTATED BY: ERNESTINA THIBODEAUX Jr., MD DATE: 06/08/25435 ELECTRONICALLY SIGNED BY: ERNESTINA THIBODEAUX Jr., MD DATE: 06/08/25435 [place] [address] IMAGING REPORT Signed PATIENT: SAUL SALAS MR#: [id number] : 1960 SEX: M AGE: 65 LOCATION: [facility] ORDER 16 STATUS: ADM IN REPORT#: [id number] SERVICE 1210 REASON: weakness in right lower extremity ORDERING PHYSICIAN: NOEMI HEART MD PROCEDURE: HEAD WO - CT HEAD/BRAIN W/O CONTRAST EXAM: CT Head Without IV contrast. CLINICAL HISTORY: weakness in right lower extremity TECHNIQUE: Axial computed tomography images of the head/brain without intravenous contrast. COMPARISON: None provided. FINDINGS: BRAIN: Moderate cerebral and cerebellar atrophy- prominent sulcal spaces, sylvian fissures, bilateral lateral ventricles and folia respectively. Patchy ill-defined hypodense areas are seen in periventricular white matter, burton radiata, centrum semiovale and fronto-parietal white matter regions bilaterally. Chronic lacunar infarcts in bilateral lentiform nuclei and stephon.No evidence of acute hemorrhage. No mass lesion. No CT evidence for acute territorial infarct. No midline shift or extra-axial collections. VENTRICLES: No hydrocephalus. ORBITS: The orbits are unremarkable. SINUSES AND MASTOIDS: The paranasal sinuses and mastoid air cells are clear. BONES: No fracture. SOFT TISSUES: Unremarkable. IMPRESSION: No acute bleed or infarct. Chronic ischemic and atrophic changes. Chronic lacunar infarcts in bilateral lentiform nuclei and stephon. /[place] DICTATED BY: CHANDLER NORTH MD DATE: 06/09/251544 ELECTRONICALLY SIGNED BY: CHANDLER NORTH MD DATE: 06/09/251544 [place] [address] [id number] IMAGING REPORT Signed PATIENT: SAUL SALAS MR#: [id number] : 1960 SEX: M AGE: 65 LOCATION: [facility] ORDER 16 [facility]US: [facility] REPORT#: [id number] SERVICE 121 REASON: back pain ORDERING PHYSICIAN: NOEMI HEART MD PROCEDURE: HIPS B 2V - HIP BILAT 2VW EXAM: X-Ray Pelvis and Bilateral Hip, 2 views. CLINICAL HISTORY: Back pain. COMPARISON: None provided. FINDINGS: No acute fracture or aggressive appearing osseous lesion. Mild bilateral hip joint osteoarthritis evident by mild asymmetric joint space reduction. The soft tissues are unremarkable. Atheromatous vascular calcification. IMPRESSION: No acute osseous abnormality. Mild bilateral hip joint osteoarthritis evident by mild asymmetric joint space reduction. /[place] DICTATED BY: CHANDLER NORTH MD DATE: 06/09/25925 ELECTRONICALLY SIGNED BY: CHANDLER NORTH MD DATE: 06/09/25925 [place] [address] [address] IMAGING REPORT Signed PATIENT: SAUL SALAS MR#: [id number] : 1960 SEX: M AGE: 65 LOCATION: [facility] ORDER 16 STATUS: ADM IN [facility] REPORT#: [id number] SERVICE 1210 REASON: back pain ORDERING PHYSICIAN: NOEMI HEART MD PROCEDURE: LUMB 2 3VW - LUMBAR SPINE 2-3VWS EXAM: CR Lumbar Spine, 3 views. CLINICAL HISTORY: Pain. COMPARISON: None. FINDINGS: Straightening of the normal lordotic curvature. Moderate lumbar spondylosis with multilevel marginal osteophytes, facet arthropathy and degenerative disc space reduction at L5-S1. Normal vertebral body heights. No acute fracture. Soft tissues are within normal limits. Atheromatous vascular calcification. IMPRESSION: No acute bony changes. Straightening of the normal lordotic curvature reflects paraspinal muscle spasm. Moderate lumbar spondylosis with multilevel marginal osteophytes, facet arthropathy and degenerative disc space reduction at L5-S1. /[place] DICTATED BY: CHANDLER NORTH MD DATE: 06/09/25914 ELECTRONICALLY SIGNED BY: CHANDLER NORTH MD DATE: 06/09/25914 [place] [address] IMAGING REPORT Signed PATIENT: SAUL SALAS MR#: [id number] : 1960 SEX: M AGE: 65 LOCATION: [facility] ORDER 141 STATUS: ADM IN REPORT#: [id number] SERVICE 1411 REASON: back pain and weakness of right lower extremity ORDERING PHYSICIAN: NOEMI HEART MD PROCEDURE: L SPIN WO - CT LUMBAR SPINE W/O CONTRAST EXAM: CT Lumbar Spine Without IV contrast. CLINICAL HISTORY: back pain and weakness of right lower extremity TECHNIQUE: Axial computed tomography images of the lumbar spine without intravenous contrast. Sagittal and coronal reformatted images were generated. COMPARISON: None provided. FINDINGS: ALIGNMENT: Bony alignment is anatomic. DISCS/DEGENERATIVE CHANGES: Degenerative changes manifested by anterior osteophytic lippings of the vertebral end plates and vacuum phenomena at few intervertebral disc levels. Vacuum phenomena in bilateral SI joint noted. Facetal arthropathy noted at right L1-L2, right L2-L3, bilateral L5-S1 levels. Multilevel reduced intervertebral disc spaces with mild disc bulges inducing mild foraminal stenosis. At level L5-S1 intervertebral disc posterior herniation or bulging with bilateral foraminal stenosis.BONES: No acute fracture or aggressive appearing osseous lesion. SOFT TISSUES: The soft tissues are unremarkable. IMPRESSION: No acute fracture or dislocation. Degenerative changes as described above. Multiple disc levels bulging and spinal or foraminal stenosis - MRI correlation is recommended for better characterization.Facetal arthropathy noted at right L1-L2, right L2-L3, bilateral L5-S1 levels. At level L5-S1 intervertebral disc posterior herniation or bulging with bilateral foraminal stenosis. /[place] DICTATED BY: CHANDLER NORTH MD DATE: 06/09/251600 ELECTRONICALLY SIGNED BY: CHANDLER NORTH MD DATE: 06/09/251600 [place] [id number] IMAGING REPORT Signed PATIENT: SAUL SALAS MR#: [id number] : 1960 SEX: M AGE: 65 LOCATION: [facility] ORDER 33 STATUS: ADM IN REPORT#: [id number] SERVICE 143 REASON: weakness of his right foot ORDERING PHYSICIAN: NOEMI HEART MD PROCEDURE: SAC ALINA 2V - SACRUM/COCCYX 2+VWS EXAM: X-Ray sacrum and coccyx 3 views. CLINICAL HISTORY: Weakness of the right foot. COMPARISON: None provided. FINDINGS: No acute fracture or aggressive appearing osseous lesion. Joint spaces are within normal limits. The soft tissues are unremarkable. Atheromatous vascular calcification. IMPRESSION: No acute osseous abnormality. /[place] DICTATED BY: CHANDLER NORTH MD DATE: 06/09/25921 ELECTRONICALLY SIGNED BY: CHANDLER NORTH MD DATE: 06/09/25921 Assessment/Plan: ASSESSMENT: Acute dehydration POA Acute on chronic iron deficiency anemia POA Right lower extremity weakness POA Hypokalemia POA Acute kidney injury on CKD stage 3POA Uncontrolled diabetes POA, A1c 6.8 Hypertension POA Hyperlipidemia POA Nicotine Dependence POA Homelessness POA PLAN: Admission Date: 06/08/2025 Discharge Date: 06/10/2025 Disposition: Home Condition: Stable Activity: As tolerated Home medications: Continued Discharge medications: Follow-up appointment: Follow up with PCP within 2-3 days of discharge We reinforced the importance of medication adherence and follow-up appointments. Discharge Instructions: Maintain adequate oral hydration Follow up balanced diet with iron rich foods Ambulate as tolerated; continue physical therapy exercises provided in the hospital Call 911 or go to ER if you develop fever, severe abdominal pain or bloating, nausea or vomiting that does not improve, sudden shortness of breath or chest pain. Home Medications: Active Scripts Simethicone (Simethicone) 125 Mg Capsule, 125 MG PO AD, #15 CAP Prov:DUGLAS RODRIGEZ MD 06/06/25 Famotidine (Famotidine) 10 Mg Tablet, 1 TAB PO DAILY for 30 Days, #30 TAB 0 Refills Prov:DUGLAS RODRIGEZ MD 06/06/25 Continued Medications: Famotidine (Famotidine) 10 Mg Tablet 1 TAB PO DAILY for 30 Days, #30 TAB 0 Refills Simethicone (Simethicone) 125 Mg Capsule 125 MG PO AD, #15 CAP Time spent arranging discharge: 31-60 minutes ATTESTATION BY PHYSICIAN I have seen and examined the patient. I reviewed the documentation, medical decision making, and treatment plan as noted by the resident provider above. I agree with the findings and plan of care. FERNANDO ROMAN MD, ABHINAV MD Jun 10, 2025 11:10
--- NOTE | 2025-06-10 11:40 | NUR ---
DISCHARGE DC'D IV. NO COMPLICATIONS. TEACHINGS GIVEN TO PT. PT ACKNOWLEDGED INFORMATION. PT WAITING FOR RIDE.
[2025-06-10] MEDS ORDERED: CALC-1125 PO (17:39)
[2025-06-10] MEDS ORDERED: MAGN300C PO (17:39)
== END 2025-06-10 12:25 | disposition home or self-care (01) ==
LOC: EDH 01:23 → EDHIP 03:01 → 3DH 03:43
PROVIDERS: ADMIT Internal Medicine; ATTEND Internal Medicine
DX: E86.0 Dehydration (principal); E87.6 Hypokalemia; D50.9 Iron deficiency anemia, unspecified; R53.1 Weakness; I12.9 Hypertensive chronic kidney disease with stage 1 through stage 4 chronic kidney disease, or unspecified chronic kidney disease; E11.22 Type 2 diabetes mellitus with diabetic chronic kidney disease; N18.30 Chronic kidney disease, stage 3 unspecified; D63.1 Anemia in chronic kidney disease; E78.5 Hyperlipidemia, unspecified; M62.830 Muscle spasm of back; M51.379 Other intervertebral disc degeneration, lumbosacral region without mention of lumbar back pain or lower extremity pain; M47.816 Spondylosis without myelopathy or radiculopathy, lumbar region; F17.210 Nicotine dependence, cigarettes, uncomplicated; Z20.822 Contact with and (suspected) exposure to COVID-19; Z79.899 Other long term (current) drug therapy; Z98.890 Other specified postprocedural states
CPT/HCPCS: 96361 ×2; 96365; 96366; 96375 ×2; 99285; 83036; 84443; 82550 ×2; 83735; 84484; 80053; 83880; 82728; 85025 ×2; 82948 ×10; 84439; 83605 ×2; 82607; 84481; 81001; 36415 ×3; 71045; 73521; 72100; 72220; 70450; 72131; 97161; 97530; 93005; 84145; 96376 ×2; 80048 ×2; 85027 ×2; 87804 ×2; 82306; 87426; G0378 ×57; J3475; J7120 ×2; J3411 ×3; J1815 ×3; J1756 ×2

== ENCOUNTER 2025-06-10 15:29 | Emergency (ER) | payer OTHER ==
[~2025-06-10] VITALS: Ht 172.7 cm; Wt 77.1 kg
--- NOTE | 2025-06-10 15:37 | ERN ---
ED Note History of Present Illness Stated Complaint: CP Chief Complaint: Chest Pain Time Seen by MD: 15:32 Dictation: PATIENT IS A 65-YEAR-OLD MALE COMING IN VIA EMS WITH COMPLAINTS OF LEFT ANTERIOR CHEST PAIN THAT DOES NOT RADIATE ONSET WAS 3-4 DAYS PRIOR TO ARRIVAL. NO NAUSEA VOMITING NO DIARRHEA NO BACK PAIN NO JAW PAIN NO ARM PAIN. HE WAS JUST DISCHARGED FROM [facility] THIS MORNING FOR THE SAME COMPLAINT. STATES HE IS HOMELESS AND HAD NO PLACE TO GO SO HE DECIDED TO CALL EMS AND COME BACK TO THE HOSPITAL SINCE HE STILL HAD PAIN. Allergies: Coded Allergies: Penicillins (Unverified Allergy, Unknown, 04/22/25) Home Meds Active Scripts Simethicone (Simethicone) 125 Mg Capsule, 125 MG PO AD, #15 CAP Prov:DUGLAS RODRIGEZ MD 06/06/25 Famotidine (Famotidine) 10 Mg Tablet, 1 TAB PO DAILY for 30 Days, #30 TAB 0 Refills Prov:DUGLAS RODRIGEZ MD 06/06/25 Past Medical History Past Medical History: Diabetes-Type II, Diverticulitis, High Cholesterol, Hypertension, [place] Surgical History: Other Surgical History Other: TOE AMPUTATION RN Note Reviewed/Agreed w/PFSH: Yes Review of System Dictation CONSTITUTIONAL: NEGATIVE EXCEPT FOR HPI HEAD/FACE: NEGATIVE EXCEPT FOR HPI EENT: NEGATIVE EXCEPT FOR HPI RESPIRATORY: NEGATIVE EXCEPT FOR HPI LEFT ANTERIOR CHEST PAIN GASTROINTESTINAL/ABDOMINAL: NEGATIVE EXCEPT FOR HPI GENITOURINARY: NEGATIVE EXCEPT FOR HPI MUSCULOSKELETAL: NEGATIVE EXCEPT FOR HPI INTEGUMENTARY: NEGATIVE EXCEPT FOR HPI NEUROLOGICAL/PSYCH: NEGATIVE EXCEPT FOR HPI HEMATOLOGIC/LYMPHATIC: NEGATIVE EXCEPT FOR HPI ALL SYSTEMS NEGATIVE, EXCEPT NOTED ABOVE. 13 POINT REVIEW OF SYSTEMS ASSESSED AND ALL NEGATIVE EXCEPT FOR ABOVE. Initial Vital Sign VS Vital Signs Date Time Temp Pulse Resp B/P (MAP) Pulse Ox O2 Delivery O2 Flow Rate FiO2 06/10/25 15:33 98.2 81 24 168/87 98 Room Air 0 06/10/25 16:30 21 Physical Exam Dictation VITAL SIGNS REVIEWED GENERAL APPEARANCE: ALERT, ORIENTED X 3, NO ACUTE DISTRESS, WELL DEVELOPED, NOURISHED. HEAD AND FACE: NON-TRAUMATIC. EYES: PERRL, PINK CONJUNCTIVAS, EYELID NO TRAUMA, ANTERIOR CHAMBER WITH ARCUS SENILIS. EARS: PINNAS INTACT AND NO SIGNS OF TRAUMA OR ERYTHEMA EAR CANALS CLEAR AND NO DISCHARGE TM NO ERYTHEMA NOSE: NO DISCHARGE, NO BLEEDING. OROPHARYNX: MOUTH NORMAL, TONGUE PINK, PHARYNX CLEAR,NO ERYTHEMA, TONSILS NO EXUDATES, NO ABSCESSES NOTED, MUCOUS MEMBRANE MOIST NECK: SUPPLE, NON-TENDER, NO THYROMEGALY, NO MASSES, NO JVD, NO BRUITS BREAST:DEFERRED CHEST:NO TENDERNESS, NO CREPITUS, NO PARADOXICAL MOVEMENT, NO RETRACTIONS LUNGS:CLEAR, WELL-VENTILATED, SYMMETRIC, NO RALES, NO WHEEZING, NO RHONCHI, NO STRIDOR, GOOD BREATH SOUNDS BILATERALLY HEART: REGULAR RATE, REGULAR RHYTHM, NO MURMUR, NO GALLOPS VASCULAR: NO PERIPHERAL EDEMA, ABDOMEN: SOFT, POSITIVE BOWEL SOUNDS, NONDISTENDED, NO GUARDING, NONTENDER, NO REBOUND, NO MASSES NO HEPATOMEGALY, NO SPLENOMEGALY, NO MILTON'S SIGN, NO HERNIAS. RECTAL: DEFERRED GENITAL: DEFERRED NEUROLOGICAL: NORMAL SPEECH, MOTOR FUNCTION INTACT, SENSORY FUNCTION INTACT MUSCULOSKELETAL: NECK NONTENDER, FULL RANGE OF MOTION, BACK NONTENDER, FULL RANGE OF MOTION, EXTREMITIES: NONTENDER, FULL RANGE OF MOTION SKIN: COLOR PINK, DRY, NO TURGOR, NO RASH, NO LACERATIONS, NO ABRASIONS, NO CONTUSIONS. LYMPHATIC: DEFERRED Results (Laboratory/Radiology) Laboratory/Radiology Laboratory Tests Test 06/10/25 16:04 White Blood Count 6.4 K/uL (4.8-10.8) Red Blood Count 3.32 MIL/uL (4.50-6.20) L Hemoglobin 9.7 g/dL (14.0-18.0) L Hematocrit 28.7 % (42-54) L Mean Corpuscular Volume 86.4 fL (79-99) Mean Corpuscular Hemoglobin 29.2 pg (27.0-33.0) Mean Corpuscular Hemoglobin Concent 33.8 g/dL (32.0-36.0) Red Cell Distribution Width 13.7 % (11.0-15.5) Platelet Count 218 K/uL (130-400) Mean Platelet Volume 10.9 fL (7.5-10.5) H Immature Granulocyte % (Auto) 0.5 % (0-1) Neutrophils (%) (Auto) 69.5 % (40.0-77.0) Lymphocytes (%) (Auto) 19.1 % (21.0-51.0) L Monocytes (%) (Auto) 6.8 % (3.0-13.0) Eosinophils (%) (Auto) 3.5 % (0.0-8.0) Basophils (%) (Auto) 0.6 % (0.0-5.0) Neutrophils # (Auto) 4.4 K/uL (1.8-7.7) Lymphocytes # (Auto) 1.2 K/uL (1.0-4.8) Monocytes # (Auto) 0.4 K/uL (0.1-1.0) Eosinophils # (Auto) 0.22 K/uL (0.00-0.70) Basophils # (Auto) 0.04 K/uL (0.00-0.20) Absolute Immature Granulocyte (auto 0.03 K/uL (0-1) Nucleated Red Blood Cells 0.0 % (0.0-0.19) Sodium Level 141 mmol/L (136-145) Potassium Level 4.2 mmol/L (3.5-5.1) Chloride Level 106 mmol/L (101-111) Carbon Dioxide Level 27 mmol/L (21-32) Blood Urea Nitrogen 26 mg/dL (7-18) H Creatinine 1.7 mg/dL (0.5-1.3) H Glomerular Filtration Rate Calc 44 mL/min (>90) Random Glucose 223 mg/dL (70-105) #H Total Calcium 8.1 mg/dL (8.5-10.1) L Magnesium Level 1.70 mg/dL (1.80-2.40) L Troponin I High Sensitivity 6 ng/L (4-75) Labs Reviewed?: Yes EKG: (+) NSR EKG Comment: 1533/EKG NORMAL SINUS RHYTHM/HEART RATE 78/AXIS NORMAL/NO ECTOPY ED Course ED Course Orders Procedure Category Date Status Time Cbc With Differential LAB 06/10/25 Complete 15:34 Chest 1vw RAD 06/10/25 Resulted 15:34 12 Lead Ekg Tracing- EKG 06/10/25 Complete Technical 15:34 Magnesium LAB 06/10/25 Complete 15:34 Troponin I High LAB 06/10/25 Complete Sensitivity 15:34 Basic Metabolic Panel LAB 06/10/25 Complete 15:34 Vital Signs Date Time Temp Pulse Resp B/P (MAP) Pulse Ox O2 Delivery O2 Flow Rate FiO2 06/10/25 16:30 98.1 74 20 172/81 99 Room Air* 0 21 06/10/25 15:33 98.2 81 24 168/87 98 Room Air 0 1740/patient discharged home with no chest pain at this time. He is aware cardi ac workup is negative. Told follow up with his primary care doctor. HEART Score Response (Comments) Value History: Low suspicion (0) 0 Age: 45-65yrs (+1) 1 Risk Factors: 1-2 risk factors (+1) 1 Initial Troponin: Normal limit (0) 0 Total 2 Medical Decision Making MDM 1740/MDM: Differential diagnosis: ACS/AMI/electrolyte imbalance/dehydration/anxiety Rationale: Tests considered and ordered secondary to shared decision making include: EKG/labs Previous outside records reviewed: Old ER visits. Risk of complication and/or morbidity or mortality of patient management: None Medications-Per medication reconciliation Need for hospitalization: Patient does not meet criteria for hospitalization. None Need for emergency major/minor surgery: No There are no social concerns with this patient. Prescription drug management calcium/magnesium Prescriptions will include symptomatic care Patient's prior external medical records from other ER visits were reviewed by me as indicated. Prior testing and results from previous visits were reviewed. Prior tests were taken into account with medical decision making and resource utilization, independent historian/historians were used to obtain complete medical history. I independently interpreted the test that were performed, results were reviewed by me and considered findings on radiology if ordered. Medical management and examination interpretation discussions were had by me with other qualified healthcare professionals as indicated for the patient's care. DX & DISP Disposition: Discharge Departure Impression: Primary Impression: Atypical chest pain Additional Impressions: Anemia of chronic renal failure, stage 3a, Stage 3 chronic kidney disease, Hypocalcemia, Hypomagnesemia, Diabetes mellitus with hyperglycemia Condition: Stable Scripts Magnesium Oxide/Mag Aa Chelate (Magnesium 300 mg Capsule) 300 Mg Capsule 300 MG PO DAILY for 10 Days, #10 CAP 0 Refills Prov: KORI GONZÁLES LATHMAKER 06/10/25 Calcium Carbonate (Calcium) 600 Mg Calcium (1500 Mg) Tablet 1 TAB PO BID for 15 Days, #30 TAB 0 Refills Prov: KORI GONZÁLES LATHMAKER 06/10/25 Additional Instructions: Follow-up with primary care provider in 1 to 2 days. Take medications as directed here in the emergency room. Okay to continue home medications unless otherwise discussed during your visit in the emergency room today. Return to your nearest emergency room if symptoms worsen or if there is no improvement. Call 911 if you need immediate assistance. Take Tylenol or Motrin [id number] as needed and if no contraindications are present. Increase oral hydration. A wound culture or urine culture was ordered here in the emergency room department please follow-up with primary care provider and advise them to get repeat ports from our facility. If you had any Luiz wrap/splints that were applied here, please do not remove them until you see your primary care or specialty. Take magnesium and calcium as directed until gone. Follow up with your primary care doctor in the next Referrals: SELF,REFERRAL (PCP) Time of Disposition: 17:39 I have reviewed the case, and I agree with, Diagnosis and Plan KORI GONZÁLES NP Jun 10, 2025 15:36
[2025-06-10 16:08] LABS: IMMATURE GRANULOCYTE ABSOLUTE 0.03 K/uL (0-1); NUCLEATED RED BLOOD CELLS 0.0 % (0.0-0.19); PLATELET COUNT (AUTO) 218 K/uL (130-400); RED BLOOD CELL COUNT(AUTO) 3.32 MIL/uL (4.50-6.20); RED CELL DISTRIBUTION WIDTH 13.7 % (11.0-15.5); WHITE BLOOD COUNT (AUTO) 6.4 K/uL (4.8-10.8)
[2025-06-10 16:19] LABS: CREATININE 1.7 mg/dL (0.5-1.3); GLOMERULAR FILTR. RATE CALC 44.0 mL/min (>90); GLUCOSE,RANDOM 223.0 mg/dL (70-105); SODIUM SERUM 141.0 mmol/L (136-145); UREA NITROGEN, BLOOD 26.0 mg/dL (7-18)
--- NOTE | 2025-06-10 16:21 | EKG ---
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
[2025-06-10 16:30] VITALS: TEMP 98.1
--- NOTE | 2025-06-10 17:24 | HMCIMG ---
EXAM: CR Chest, 1 View. CLINICAL HISTORY: CHEST PAIN COMPARISON: None provided. FINDINGS: LUNGS: The lungs show no infiltrate or other acute finding. PLEURAL SPACES: No evidence of pleural effusion or pneumothorax. MEDIASTINUM: Cardiac size and mediastinal contours within normal limits. BONES: No aggressive appearing osseous lesion seen. IMPRESSION: No acute cardiopulmonary pathology is evident. /[place]
[2025-06-10] MEDS ORDERED: CALC-1125 PO (17:39)
[2025-06-10] MEDS ORDERED: MAGN300C PO (17:39)
[2025-06-10 17:43] VITALS: BP 157/80; PULSE 71; RESP 20; O2SAT 97
== END 2025-06-10 17:55 | disposition home or self-care (01) ==
LOC: EDH 15:29
DX: R07.89 Other chest pain (principal); D63.1 Anemia in chronic kidney disease; I12.9 Hypertensive chronic kidney disease with stage 1 through stage 4 chronic kidney disease, or unspecified chronic kidney disease; E11.22 Type 2 diabetes mellitus with diabetic chronic kidney disease; E11.65 Type 2 diabetes mellitus with hyperglycemia; E78.00 Pure hypercholesterolemia, unspecified; E83.42 Hypomagnesemia; E83.51 Hypocalcemia; N18.31 Chronic kidney disease, stage 3a; I25.2 Old myocardial infarction; Z88.0 Allergy status to penicillin
CPT/HCPCS: 36415; 71045; 80048; 83735; 84484; 85025; 93005; 99285

== ENCOUNTER 2025-06-16 19:13 | Emergency (ER) | payer OTHER ==
[~2025-06-16] VITALS: Ht 172.7 cm; Wt 68.0 kg
[~2025-06-16 19:13] MED LIST changes: +CALC-1125 PO; +MAGN300C PO
--- NOTE | 2025-06-16 19:20 | NUR ---
PT CARE ASSUMED AT THIS TIME
--- NOTE | 2025-06-16 20:26 | NUR ---
BEDSIDE BLOOD GLUCOSE CHECK DONE AT THIS TIME. ED MD GU NOTIFIED.
--- NOTE | 2025-06-16 20:31 | NUR ---
PT REFUSED EKG AT THIS TIME. ED RN EDUCATED PT ABOUT THE IMPORTANCE OF EKG. PT VERBALIZED UNDERSTANDING OF EDUCATION; PT STILL REFUSING EKG AT THIS TIME. ED MD GU NOTIFIED.
[2025-06-16] MEDS: ORPHENADRINE 60MG/2ML IVP ONE (20:38)
[2025-06-16] MEDS: LACTATED RINGERS 1000ML IV STA ×2 (20:38→23:28)
[2025-06-16 20:45] LABS: IMMATURE GRANULOCYTE ABSOLUTE 0.02 K/uL (0-1); NUCLEATED RED BLOOD CELLS 0.0 % (0.0-0.19); PLATELET COUNT (AUTO) 224 K/uL (130-400); RED BLOOD CELL COUNT(AUTO) 3.63 MIL/uL (4.50-6.20); RED CELL DISTRIBUTION WIDTH 14.6 % (11.0-15.5); WHITE BLOOD COUNT (AUTO) 7.2 K/uL (4.8-10.8)
[2025-06-16 20:58] LABS: CREATININE 2.1 mg/dL (0.5-1.3); GLOMERULAR FILTR. RATE CALC 35.0 mL/min (>90); GLUCOSE,RANDOM 204.0 mg/dL (70-105); SODIUM SERUM 143.0 mmol/L (136-145); UREA NITROGEN, BLOOD 32.0 mg/dL (7-18)
[2025-06-16 21:03] LABS: ASPARTATE AMINOTRANSFERASE 18.0 U/L (10-37); TOTAL PROTEIN, SERUM 7.2 g/dL (6.0-8.3)
--- NOTE | 2025-06-16 23:54 | ERN ---
General Chief Complaint: Weakness Stated Complaint: GENERALIZED WEAKNESS, HEADACHE Time Seen by MD: 19:46 Source: patient History of Present Illness Initial Comments Patient is a 65-year-old homeless male who comes in with a headache and a feeling of generalized body weakness. Past medical history is diabetes, hypertension, hypercholesterolemia and a prior stroke from which he does not seem to have any sequelae. Allergies: Coded Allergies: Penicillins (Unverified Allergy, Unknown, 04/22/25) Home Meds Active Scripts Magnesium Oxide/Mag Aa Chelate (Magnesium 300 mg Capsule) 300 Mg Capsule, 300 MG PO DAILY for 10 Days, #10 CAP 0 Refills Prov:KORI GONZÁLES NP 06/10/25 Calcium Carbonate (Calcium) 600 Mg Calcium (1500 Mg) Tablet, 1 TAB PO BID for 15 Days, #30 TAB 0 Refills Prov:KORI GONZÁLES NP 06/10/25 Simethicone (Simethicone) 125 Mg Capsule, 125 MG PO AD, #15 CAP Prov:DUGLAS RODRIGEZ MD 06/06/25 Famotidine (Famotidine) 10 Mg Tablet, 1 TAB PO DAILY for 30 Days, #30 TAB 0 Refills Prov:DUGLAS RODRIGEZ MD 06/06/25 Past Medical History Past Medical History: CVA, Diabetes-Type II, High Cholesterol, Hypertension Past Surgical History: Other Surgical History Other: CARDIAC STENTS Constitutional: (-) chills, (-) diaphoresis, (-) fever, (-) malaise, (-) weakness, (-) other documentation EENTM: (-) eye pain, (-) blurred vision, (-) tearing, (-) double vision, (-) ear pain, (-) ear discharge, (-) nose pain, (-) nose congestion, (-) throat pain, (-) Throat swelling, (-) mouth pain, (-) tooth pain, (-) mouth swelling, ( -) other documentation Respiratory: (-) cough, (-) orthopnea, (-) short of breath, (-) stridor, (-) wheezing, (-) other documentation Cardiovascular: (-) chest pain, (-) edema, (-) palpitations, (-) syncope, (-) dyspnea on exertion, (-) other documentation Gastrointestinal/Abdominal: (-) nausea, (-) vomiting, (-) diarrhea, (-) abdominal pain, (-) abdominal distention, (-) constipation, (-) rectal bleeding, (-) dark stool/melena, (-) other documentation Genitourinary: (-) penile discharge, (-) dysuria, (-) frequency, (-) hematuria, (-) pain, (-) other documentation Musculoskeletal: (-) Neck pain, (-) back pain, (-) Flank Pain, (-) joint pain, (-) joint swelling, (-) muscle pain, (-) muscle stiffness, (-) gout, (-) other documentation Skin: (-) laceration, (-) contusion, (-) abrasion, (-) abscess, (-) rash, (-) change in color, (-) change in hair, (-) change in nails, (-) diaphoresis, (-) dryness, (-) other documentation Neuro: (+) headache Physical Exam General Appearance: (+) moderate distress General Appearance comment Disheveled poorly kempt old clothes consistent with being homeless. Orientation: (+) alert Head/Face Trauma: No Eye: bilateral eye normal inspection, bilateral eye PERRL, bilateral eye EOMI Ear, Nose, Throat: (+) hearing grossly normal, (+) normal ENT inspection, (+) moist mucous membraine Neck: (+) normal inspection, (+) supple, (+) full range of motion Respiratory: (+) chest non-tender, (+) lungs clear, (+) well ventilated Heart: (+) regular, (+) no gallop Vascular: (+) no edema, (+) normal peripheral pulse Gastrointestinal: (+) soft, (+) non-tender, (+) bowel sound present Results Laboratory and Microbiology Lab and Micro Result Laboratory Tests Test 06/16/25 20:23 06/16/25 20:25 06/17/25 00:13 Whole Blood Glucose 195 MG/DL (70-110) H White Blood Count 7.2 K/uL (4.8-10.8) Red Blood Count 3.63 MIL/uL (4.50-6.20) L Hemoglobin 10.7 g/dL (14.0-18.0) L Hematocrit 32.9 % (42-54) L Mean Corpuscular Volume 90.6 fL (79-99) Mean Corpuscular Hemoglobin 29.5 pg (27.0-33.0) Mean Corpuscular Hemoglobin Concent 32.5 g/dL (32.0-36.0) Red Cell Distribution Width 14.6 % (11.0-15.5) Platelet Count 224 K/uL (130-400) Mean Platelet Volume 11.6 fL (7.5-10.5) H Immature Granulocyte % (Auto) 0.3 % (0-1) Neutrophils (%) (Auto) 63.7 % (40.0-77.0) Lymphocytes (%) (Auto) 21.7 % (21.0-51.0) Monocytes (%) (Auto) 8.8 % (3.0-13.0) Eosinophils (%) (Auto) 4.9 % (0.0-8.0) Basophils (%) (Auto) 0.6 % (0.0-5.0) Neutrophils # (Auto) 4.6 K/uL (1.8-7.7) Lymphocytes # (Auto) 1.6 K/uL (1.0-4.8) Monocytes # (Auto) 0.6 K/uL (0.1-1.0) Eosinophils # (Auto) 0.35 K/uL (0.00-0.70) Basophils # (Auto) 0.04 K/uL (0.00-0.20) Absolute Immature Granulocyte (auto 0.02 K/uL (0-1) Nucleated Red Blood Cells 0.0 % (0.0-0.19) Sodium Level 143 mmol/L (136-145) Potassium Level 4.4 mmol/L (3.5-5.1) Chloride Level 105 mmol/L (101-111) Carbon Dioxide Level 26 mmol/L (21-32) Blood Urea Nitrogen 32 mg/dL (7-18) H Creatinine 2.1 mg/dL (0.5-1.3) H Glomerular Filtration Rate Calc 35 mL/min (>90) Random Glucose 204 mg/dL (70-105) H Lactic Acid Level 2.6 mmol/L (0.8-2.5) H Total Calcium 8.4 mg/dL (8.5-10.1) L Magnesium Level 2.20 mg/dL (1.80-2.40) Total Bilirubin 0.2 mg/dL (0.2-1.0) Aspartate Amino Transf (AST/SGOT) 18 U/L (10-37) Alanine Aminotransferase (ALT/SGPT) 18 U/L (12-78) Alkaline Phosphatase 102 U/L (50-136) B-Type Natriuretic Peptide 46 pg/mL (0-100) Total Protein 7.2 g/dL (6.0-8.3) Albumin 3.3 g/dL (3.5-5.0) L Urine Color LIGHT-YELLOW (YELLOW) Urine Appearance CLEAR (CLEAR) Urine pH 6.5 (5.0-8.0) Urine Specific [place] 1.017 (1.001-1.031) Urine Protein 100 mg/dL (NEGATIVE) H Urine Glucose (UA) NEGATIVE mg/dL (NEGATIVE) Urine Ketones NEGATIVE mg/dL (NEGATIVE) Urine Occult Blood NEGATIVE (NEGATIVE) Urine Nitrate NEGATIVE (NEGATIVE) Urine Bilirubin NEGATIVE mg/dL (NEGATIVE) Urine Urobilinogen 0.2 mg/dL (0.2-1.0) Urine Leukocyte Esterase NEGATIVE [place]/uL Urine RBC 0-1 /HPF (0-1) Urine WBC 2-5 /HPF (0-1) H Urine Squamous Epithelial Cells RARE /HPF (0-2) Urine Bacteria None /HPF (None Seen) Urine Hyaline Casts 2-5 /LPF (0-1 /LPF) H MDM I am assuming the patient is dehydrated malnourished and in need of resuscitation. I will rule out DKA and infections. Patient's laboratory analysis shows a normal white blood cell count and mild anemia. His chemistry panel does have an elevated creatinine and BUN however these values are near his baseline values. His lactic acid was 2.6. Blood glucose 204. UA was negative for infection chest x-ray was negative for pneumonia. After receiving 2 L of IV fluids patient feels better and would like to leave the hospital. ED Course Orders Procedure Category Date Status Time 12 Lead Ekg Tracing- EKG 06/16/25 Logged Technical 20:04 B-Type Natriuretic LAB 06/16/25 Complete Peptide 20:04 Comprehensive LAB 06/16/25 Complete Metabolic Panel 20:04 Cbc With Differential LAB 06/16/25 Complete 20:04 Lactic Acid LAB 06/16/25 Complete 20:04 Magnesium LAB 06/16/25 Complete 20:04 Urinalysis Profile LAB 06/16/25 Complete 20:04 Lactated Ringers PHA 06/16/25 Complete 1000ml (Lactated 20:04 Orphenadrine Citrate PHA 06/16/25 Complete (Norflex) 20:30 Bedside Glucose CPOE 06/16/25 Verified Fingerstick 20:05 Lactated Ringers PHA 06/16/25 Complete 1000ml (Lactated 23:08 Resume Previous Diet CPOE 06/16/25 Transmitted 23:08 Drug Screen Urine LAB 06/16/25 In Process 23:10 Chest 1vw RAD 06/16/25 Taken 23:54 Lactic Acid (Removed) LAB 06/17/25 In Process 00:06 Current Medications Medications (Trade) Dose Ordered Sig/Shay Route PRN Reason Start Time Stop Time Status Last Admin Dose Admin Lactated Ringer's (Lactated Ringers 1000ml) 1,000 ml BOLUS STAT IV 06/16/25 20:04 06/16/25 20:06 DC 06/16/25 20:38 Lactated Ringer's (Lactated Ringers 1000ml) 1,000 ml BOLUS STAT IV 06/16/25 23:08 06/16/25 23:11 DC 06/16/25 23:28 Orphenadrine Citrate (Norflex) 60 mg ONCE ONCE IVP 06/16/25 20:30 06/16/25 20:31 DC 06/16/25 20:38 Vital Signs Date Time Temp Pulse Resp B/P (MAP) Pulse Ox O2 Delivery O2 Flow Rate FiO2 06/17/25 00:06 65 16 131/68 98 Room Air* 0 06/16/25 22:55 60 14 110/72 99 Room Air* 0 06/16/25 21:35 68 16 129/66 99 Room Air* 0 06/16/25 20:55 70 15 136/72 98 Room Air* 0 06/16/25 19:22 99.0 71 16 135/74 98 Room Air* 0 06/16/25 19:15 99.0 73 16 160/82 96 0 DX & DISP Disposition: Discharge Departure Impression: Primary Impression: Dehydration Additional Impressions: Anemia of chronic renal failure, stage 3a, Hunger Condition: Stable Additional Instructions: Please come back to the emergency room if you become this dehydrated and malnourished again. Referrals: SELF,REFERRAL (PCP) IVELISSE AYALA MD Jun 16, 2025 23:54
[2025-06-17 00:24] LABS: APPEARANCE,URINE CLEAR (CLEAR); GLUCOSE, URINE (UA) NEGATIVE (NEGATIVE); LEUKOCYTE ESTERASE ,URINE NEGATIVE Leu/uL (NEGATIVE); NITRATE,URINE NEGATIVE (NEGATIVE); OCCULT BLOOD,URINE NEGATIVE (NEGATIVE)
[2025-06-17 00:26] LABS: ADD UA MICROSCOPIC YES
[2025-06-17 00:27] LABS: SQUAMOUS EPITHELIAL CELL,UR RARE /HPF (0-2)
[2025-06-17 01:05] LABS: AMPHET/METH SCREEN,URINE NEGATIVE (NEGATIVE); BARBITURATE SCREEN, URINE NEGATIVE (NEGATIVE); CANNABINOID SCREEN,URINE NEGATIVE (NEGATIVE); COCAINE SCREEN,URINE NEGATIVE (NEGATIVE)
[2025-06-17 01:06] VITALS: BP 136/58; PULSE 58; RESP 16; TEMP 98.9; O2SAT 98
--- NOTE | 2025-06-17 01:09 | HMCIMG ---
EXAM: CR Chest, 1 view. CLINICAL HISTORY: Rule out infection. COMPARISON: CR Chest. 06/10/2025. FINDINGS: Infiltrates in the right lower zone. No pleural effusion or pneumothorax. The cardio mediastinal silhouette is within normal limits. No acute osseous abnormality. IMPRESSION: Infiltrates in the right lower zone. Further evaluation with a CT scan of the chest is recommended. /[place]
== END 2025-06-17 01:11 | disposition home or self-care (01) ==
LOC: EDH 19:13
DX: T73.0XXA Starvation, initial encounter (principal); E86.0 Dehydration; I12.9 Hypertensive chronic kidney disease with stage 1 through stage 4 chronic kidney disease, or unspecified chronic kidney disease; N18.31 Chronic kidney disease, stage 3a; D63.1 Anemia in chronic kidney disease; E11.22 Type 2 diabetes mellitus with diabetic chronic kidney disease; E78.00 Pure hypercholesterolemia, unspecified; Z86.73 Personal history of transient ischemic attack (TIA), and cerebral infarction without residual deficits; Z88.0 Allergy status to penicillin; Z95.5 Presence of coronary angioplasty implant and graft; X58.XXXA Exposure to other specified factors, initial encounter
CPT/HCPCS: 99285; 96361; 96374; 71045; 83735; 80053; 83880; 80305; 85025; 82948; 83605 ×2; 81001; 36415 ×2; J7120 ×2; J2360